=== PATIENT | female | born 1995 | race Caucasian/White ===

== ENCOUNTER 2017-07-10 17:35 | Inpatient (IN) | payer OTHER ==
[2017-07-10] MEDS ORDERED: NALOXONE 0.4 MG/ML 10 ML VIAL IVP STA (18:03)
--- NOTE | 2017-07-10 19:05 | ED ---
General Adult HPI - General Chief complaint: Overdose Stated complaint: unresponsive Time Seen by Provider: 07/10/17 17:37 Source: RN notes reviewed, old records reviewed Mode of arrival: wheelchair Limitations: altered mental status - History of Present Illness Initial comments: This is a 21-year-old female brought has emergency found in parking lot unresponsive. Patient's blood in by staff nearly apneic with pulse although cyanotic to the lips. Patient is unable to give history secondary to clinical state. - Related Data Home Medications Medication Instructions Recorded Confirmed No Known Home Medications [No 07/10/17 07/10/17 Known Home Medications] Allergies Allergy/AdvReac Type Severity Reaction Status Date / Time No Known Allergies Allergy Verified 07/10/17 18:01 Review of Systems ROS Statement: Those systems with pertinent positive or pertinent negative responses have been documented in the HPI. ROS Other: All systems not noted in ROS Statement are negative. Past Medical History Past Medical History: No Reported History History of Any Multi-Drug Resistant Organisms: None Reported Past Surgical History: Orthopedic Surgery, Tonsillectomy Past Psychological History: No Psychological Hx Reported Smoking Status: Current every day smoker Past Alcohol Use History: Occasional Past Drug Use History: Heroin, Methamphetamine General Exam Limitations: altered mental status General appearance: alert, lethargic, obtunded Head exam: Present: atraumatic, normocephalic, normal inspection Eye exam: Present: normal appearance, PERRL, EOMI. Absent: scleral icterus, conjunctival injection, periorbital swelling ENT exam: Present: normal exam, mucous membranes moist Neck exam: Present: normal inspection. Absent: tenderness, meningismus, lymphadenopathy Respiratory exam: Present: decreased breath sounds. Absent: respiratory distress, wheezes, rales, rhonchi, stridor Cardiovascular Exam: Present: regular rate, normal rhythm, normal heart sounds. Absent: systolic murmur, diastolic murmur, rubs, gallop, clicks GI/Abdominal exam: Present: soft, normal bowel sounds. Absent: distended, tenderness, guarding, rebound, rigid Extremities exam: Present: normal inspection, full ROM, normal capillary refill. Absent: tenderness, pedal edema, joint swelling, calf tenderness Back exam: Present: normal inspection Psychiatric exam: Present: normal affect, normal mood Skin exam: Present: cyanosis. Absent: rash Course Vital Signs 07/10/17 07/10/17 07/10/17 17:43 17:49 18:08 Temperature 98.6 F Pulse Rate 136 H 107 H 87 Respiratory 0 L 16 12 Rate Blood Pressure 133/77 133/77 O2 Sat by Pulse 98 99 Oximetry - Reevaluation(s) Reevaluation #1: 07/10/17 19:03 Patient was adequately resuscitated with bag valve ventilation, IV, IV Narcan and patient responded appropriately Reevaluation #2: 07/10/17 19:04 Patient is currently awake and alert has family at bedside Medical Decision Making - Medical Decision Making 21 female at with overdose, acute overdose. Patient has adequate return of mental state with Narcan, does admit to heroin use. Denies any other drugs. Patient remains awake and alert here in the emergency department. Patient asking to be discharged home Critical Care Time Critical Care Time: Yes Total Critical Care Time: 31 Disposition Clinical Impression: Accidental drug ingestion, Drug overdose, Poisoning by opiate or related narcotic Disposition: HOME SELF-CARE Condition: Good Instructions: Opioid Overdose (ED) Referrals: None,Stated [Primary Care Provider] - 1-2 days
[2017-07-10] MEDS ORDERED: MAGNESIUM HYDROXIDE 2,400 MG/10 ML CUP PO PRN (21:41)
--- NOTE | 2017-07-10 23:33 | P.MDCNMH ---
History of Present Illness H&P Date: 07/10/17 Chief Complaint: medical management 21 year old female with past psychiatric history of depression, bipolar disorder , and heroin addiction. Patient was brought into the hospital after overdosing on Heroin, She was brought in by her friends who dropped her at the parking lot, then hospital staff members helped her inside when they found her in the parking lot. Patient reports that she frequently overdoses on heroin, otherwise she currently denies any chest pain, fever, chills, trouble breathing, abd pain, diarrhea, dysuria, or any vaginal discharge. She is currently awake and alert, she is worried about withdrawal symptoms. She reports an abrasion over her anterior chest due to sternal rub performed by her friends Review of Systems Constitutional: Patient reports no fever, no chills, no night sweating, no significant weight changes Eyes: Patient reports no visual changes, no eye pain ENT: Patient reports no ear pain, no rhinorrhea, no sore throat Cardiovascular: Patient reports no chest pain, no exertional dyspnea, no peripheral leg edema, no orthopnea, no paroxysmal nocturnal dyspnea Respiratory:Patient reports no cough, no wheezing, no shortness of breath Gastrointestinal: Patient reports no diarrhea, no constipation, no nausea no vomiting, no abdominal pain Genitourinary: Patient reports no dysuria, no hematuria, no changes in urinary habits, no genital lesions Musculoskeletal: Patient reports no muscle pain, no joint pain Psychiatric: Patient reports no changes in mood or memory, no suicidal ideation , no anxiety Endocrine: Patient reports no heat intolerance, no cold intolerance, no excessive thirst, no polyuria Neurological: Patient reports no focal neurologic deficits, no weakness, no numbness, no tingling Hem/Lymphatic: Patient reports no bleeding tendency, no bruising, no swollen lymph glands Allergic/Immun: Patient reports no recent allergic reactions Skin: Patient reports no rashes, no pruritis, Patient reports abrasions over the anterior chest due to sternal rubs. Past Medical History Additional Past Medical History / Comment(s): hepatitis C History of Any Multi-Drug Resistant Organisms: None Reported Past Surgical History: Orthopedic Surgery, Tonsillectomy Past Psychological History: Bipolar, Depression Smoking Status: Current every day smoker Past Alcohol Use History: Occasional Past Drug Use History: Heroin, Methamphetamine Additional History: family history of neurofibromatosis in her grandfather and uncle Medications and Allergies Home Medications and Allergies Comment(s): patient denies taking any medications at home Home Medications Medication Instructions Recorded Confirmed Type No Known Home Medications [No 07/10/17 07/10/17 History Known Home Medications] Allergies Allergy/AdvReac Type Severity Reaction Status Date / Time No Known Allergies Allergy Verified 07/10/17 18:01 Physical Exam Vitals: Vital Signs Temp Pulse Pulse Resp BP BP Pulse Ox 07/10/17 21:56 97.8 F 89 16 111/73 99 07/10/17 19:20 113 H 18 121/74 98 07/10/17 18:08 87 12 133/77 99 07/10/17 17:49 107 H 16 133/77 98 07/10/17 17:43 98.6 F 136 H 0 L Intake and Output 07/10/17 07/10/17 07/10/17 06:59 14:59 22:59 Other: Weight 60 kg Patient Weight 07/11/17 06:59 Weight 60 kg Constitutional: No acute distress, conversant, pleasant Eyes: Anicteric sclerae, moist conjunctiva, no lid-lag Pupils equal round reactive to light ENMT: NC/AT Oropharynx clear, no erythema, exudates Neck: Supple, FROM, no masses, or JVD No carotid bruits No thyromegaly Lungs: Clear to auscultation Clear to percussion Normal respiratory effort, no accessory muscle use Cardiovascular: Heart regular in rate and rhythm, No murmurs, gallops, or rubs No peripheral edema Abdominal: Soft Nontender, no guarding, rebound or rigidity Abdomen moving with respiration Normoactive bowel sounds No hepatomegaly, No splenomegaly No palpable mass No abdominal wall hernia noted Skin: Normal temperature, tone, texture, turgor No induration No subcutaneous nodules No rash superficial abrasions (2) over the mid sternal area 3X3 cm each, non- bleeding Extremities: No digital cyanosis No clubbing Pedal pulses intact and symmetrical Radial pulses intact and symmetrical No calf tenderness Psychiatric: Alert and oriented to person, place and time Appropriate affect fair judgment Neuro Muscles Strength 5/5 in all 4 extremities Sensation to light touch grossly present throughout No focal sensory deficits Lymphatics: no palpable cervical or supraclavicular , or inguinal lymph nodes Cranial Nerve Examination - Cranial Nerves Cranial Nerve II- Optic: Intact Cranial Nerve III- Oculomotor: Intact Cranial Nerve IV- Trochlear: Intact Cranial Nerve V- Trigeminal: Intact Cranial Nerve - Abducens: Intact Cranial Nerve VII- Facial: Intact Cranial Nerve VIII- Auditory: Intact Cranial Nerve IX- Glossopharyngeal: Intact Cranial Nerve X- Vagus: Intact Cranial Nerve XI- Accessory: Intact Cranial Nerve XII- Hypoglossal: Intact Results Labs: Abnormal Lab Results - Last 24 Hours (Table) 07/10/17 Range/Units 20:06 U Benzodiazepines Scrn Detected H (NotDetected) U Marijuana (THC) Screen Detected H (NotDetected) Assessment and Plan (1) Drug overdose Narrative/Plan: Heroin withdrawal symptoms Catapress PRN bentyl PRN loperamide PRN symptomatic control Status: Acute (2) Heroin abuse Narrative/Plan: Marijuana abuse patient counseled to quit drug of abuse Status: Acute (3) DVT prophylaxis Narrative/Plan: low risk , ambulatory Status: Acute Plan: Thank you for allowing us to participate in the care of this patient. We will follow peripherally. Do not hesitate to contact us with questions. Someone can be reached from the [facility] hospitalist group at all hours of the day at [phone].
[2017-07-11] MEDS: NICOTINE 21MG/24HR PATCH TRANSDERM SCH ×2 (00:23→08:38)
[2017-07-11 08:50] LABS: Basophils % (A) 0 %; CH 32.9; CHCM 34.6; Eosinophils # (A) 0.2 k/uL (0-0.7); Eosinophils % (A) 2 %; HCT 47.3 % (34.0-46.0); HDW 2.37; HGB 15.6 gm/dL (11.4-16.0); Luc % (Auto) 2; Lymphocytes # (A) 2.8 k/uL (1.0-4.8); Lymphocytes % (A) 33 %; MCH 31.6 pg (25.0-35.0); MCV 95.5 fL (80.0-100.0); Mean Platelet Volume 7.2; Monocytes # (A) 0.5 k/uL (0-1.0); Monocytes % (A) 6 %; Neutrophils # (A) 4.7 k/uL (1.3-7.7); Neutrophils % (A) 56 %; RBC 4.95 m/uL (3.80-5.40); RDW 13.1 % (11.5-15.5); WBC 8.4 k/uL (3.8-10.6); WBC (Perox) 8.53
[2017-07-11 09:03] LABS: ALT 64 U/L (9-52); AST 54 U/L (14-36); Alkaline Phosphatase 79 U/L (38-126); Anion Gap 7 mmol/L; Blood Urea Nitrogen 10 mg/dL (7-17); Calcium 9.2 mg/dL (8.4-10.2); Carbon Dioxide 24 mmol/L (22-30); Chloride 108 mmol/L (98-107); Glucose 88 mg/dL (74-99); Non-African American GFR(MDRD) >60 (>60 ml/min/1.73 sqM); Potassium 4.1 mmol/L (3.5-5.1); Sodium 139 mmol/L (137-145); Total Bilirubin 0.6 mg/dL (0.2-1.3); Total Protein 6.5 g/dL (6.3-8.2)
[2017-07-11] MEDS: cloNIDine HCL 0.1 MG TAB PO PRN ×2 (12:11→20:23)
[2017-07-11] MEDS: LOPERAMIDE 2 MG CAP PO PRN ×2 (12:12→19:07)
[2017-07-11] MEDS: ONDANSETRON ODT 4 MG TAB PO PRN (12:18)
--- NOTE | 2017-07-11 13:01 | HP ---
HISTORY AND PHYSICAL DATE OF SERVICE: 07/11/2017 IDENTIFYING DATA: This patient is a 21-year-old, single female, who was admitted to the mental health unit through the emergency room for suicidal ideation. HISTORY OF PRESENT ILLNESS: The patient was petition by her mother stating the patient had made numerous suicidal statements and she had nothing to live for. The patient was apparently dumped in the parking lot of the hospital. She was found and brought into the emergency room and given Narcan. It was documented that she had been given Narcan twice in the last week due to other heroin overdoses. The patient states that she admits to making the statements of being suicidal and having nothing to live for as there is an open CPS case, and there is a good chance that she will lose custody of her son. She states that she does struggle with depression and has a history of depressive episodes. She has been feeling hopeless. Sleep has been poor. Appetite decreased with reported weight loss. Energy has been low. She states that she is in the hospital now so she feels that she cannot harm herself. She has no thoughts of harming others. She is endorsing. No auditory or visual hallucinations or specific delusions. She endorses what appears to be a history of hypomanic episodes where she will go several days in a row with decreased sleep, increased energy, racing thoughts, pressured speech, and some euphoria. This does not appear to cause significant dysfunction psychosocially speaking. She endorses anxiety symptoms that are present on a daily basis. She states "I always feel on edge" she would state that she excessively worries about things that she should not have to and this contributes to feelings of fatigue irritability and restlessness as well as sleep disturbance. Her clinical picture is confounded by the fact that she is using heroin intravenously on a daily basis and has been doing so for number of years. PAST PSYCHIATRIC HISTORY: The patient has been admitted to [facility] for inpatient psychiatric care at age 13 for a suicide attempt with Excedrin. She states that was the only intentional suicide attempt she has ever made. She states these recent overdose with heroin were unintentional. She is currently working with a therapist named Gualberto at [facility] and sees him weekly. She was supposed to attend chemical dependency group as well but has missed the last several weeks. She has worked with Dr. Munoz in the past. She is on no psychotropic medications currently. She had been on lithium, Prozac, Wellbutrin and Seroquel in the past. She states Prozac made her feel crazy. Wellbutrin made her feel anxious and jittery and Seroquel was too sedating. She was tried twice on lithium, the second trial was unsuccessful. PAST MEDICAL HISTORY: Hepatitis C diagnosed approximately one and half years ago. This is due to her intravenous use of heroin and she admits to sharing needles. She states she was tested for HIV while she was but has not been tested since despite ongoing risk. ALLERGIES: No known drug allergies. CHEMICAL DEPENDENCY HISTORY: She reports using 1-4 packs of heroin on a daily basis for the last 9 years. She does use this intravenously. She uses marijuana on a daily basis. Cocaine twice a month. Alcohol rarely. She has been in inpatient chemical dependency treatment four times. The last one was one month ago at [facility]. She was clean for 2 weeks upon discharge before using heroin. FAMILY HISTORY: She has two sisters known to have bipolar disorder. One is treated with Seroquel. Her grandmother is known to have bipolar disorder. There are no suicides in the family. FAMILY CHEMICAL DEPENDENCY HISTORY: Her one sister is known to have opiate use disorder, as well specifically using heroin. LEGAL HISTORY: She was arrested in her late teens or approximately 18 years old for operating and maintaining a meth lab. She served 3 months in prison and 2 years of probation. ABUSE HISTORY: None reported. SOCIAL HISTORY: The patient is 21 years old. She is single. She resides with her mother. She has a 1- 1/2-year-old son. She states her mother also has a boyfriend that lives with them. She states her mother and her boyfriend works midnights and the patient cares for her child during the day. She admits to using drugs during the daytime but tries to "use less" when caring for her son. The patient is unemployed. She has no income. She has a 10th grade education. She quit school because she "did not like it any more." She has 1 brother and 2 sisters. She is originally from the [facility] and now lives in [place]. No history of experience. In terms of funding her use of substances, she states she "lies, cheats and steals" and also prostitutes herself at times. MENTAL STATUS EXAM: The patient is a female, appearing her stated age. She has a disheveled appearance. She is dressed in hospital gowns. Eye contact was intermittent. Speech is fluent spontaneous nonpressured. She reports a depressed mood with hopeless thinking. She presented with suicidal ideation. She endorses no homicidal ideation intent or plan. She endorses no thoughts of harming her son. She endorses no auditory or visual hallucinations or specific delusions. There is no evidence of psychosis. She demonstrates no pressured speech. She does not appear hypomanic or manic at this time. She does frequently move while seated in her chair. She demonstrates no verbal or physical aggressiveness. Insight and judgment are limited. She is oriented to person, place, and date. She is able to spell world forwards and backwards. STRENGTHS: Housing, willingness to receive voluntary treatment. WEAKNESSES: Ongoing substance use. Lack of employment. No income. INTELLECT: Average. IMPRESSIONS: 1. Bipolar 2 disorder, most recent depressed, generalized anxiety disorder, opiate use disorder, rule out cocaine use disorder, rule out cannabis use disorder. 2. Rule out Cluster B traits. 3. Hepatitis C, ongoing risk factors for HIV. 4. Open CPS case regarding custody of her son. PLAN OF TREATMENT: The patient has been admitted to the mental health unit. She is willing to sign in voluntarily. We reviewed her presenting symptoms. We decided to try to accomplish stabilization of her mood by prescribing Lamictal which we will titrate during the course of the admission. We also discussed possibly using Valtrex to reduce cravings of opiate use. We discussed both the potential benefits and side effects of these medications and her questions were answered. We will provide symptomatic treatment for impending opioid withdrawal. She will be seen by internal medicine for routine history and physical exam. Social Work will meet with the patient to complete a psychosocial assessment and begin discharge planning. We will monitor for safety and encourage her participation in the milieu. She is requesting that we check blood work for HIV status and that will be ordered as well. MMODL / IJN: [id number] /
[2017-07-11] MEDS: LORazepam 1 MG TAB PO PRN (19:06)
[2017-07-11] MEDS: ACETAMINOPHEN TAB 325 MG TAB PO PRN (19:07)
[2017-07-12] MEDS: ACETAMINOPHEN TAB 325 MG TAB PO PRN (06:42)
[2017-07-12] MEDS: cloNIDine HCL 0.1 MG TAB PO PRN ×2 (06:42→12:53)
[2017-07-12] MEDS: MAG HYDROX/AL HYDROX/SIMETH 30 ML CUP PO PRN (06:43)
[2017-07-12] MEDS: NICOTINE 21MG/24HR PATCH TRANSDERM SCH (08:52)
[2017-07-12] MEDS: LORazepam 1 MG TAB PO PRN ×2 (08:52→20:26)
[2017-07-12] MEDS: lamoTRIgine 25 MG TAB PO SCH (08:52)
--- NOTE | 2017-07-12 11:46 | P.PN ---
Progress Note - Text The patient is found in the hallway she follows me to the interview room. She reports feeling hopeless but states she has no thoughts of harming herself. She feels trapped in not knowing what to do. She thinks there is a good chance that CPS will take her son from her but she is hoping he will be placed with her mother. She struggles with the idea of maintaining sobriety from heroin and she's been using this for 9 years. She had previously been on Suboxone with Dr. Munoz and is hoping to get back into that clinic. She has no questions or concerns regarding her Lamictal. Mental status exam: The patient is alert hygiene is adequate she's mildly disheveled. Eye contact is intermittent. She does frequently moves while seated in her chair. She demonstrates no verbal or physical aggressiveness. She finds that her mood is down and she has hopeless thoughts he states she has no thoughts of harming herself. No homicidal ideation reported. She is endorsing no auditory or visual hallucinations or specific delusions. She does not appear hypomanic or manic. She remains oriented to person place and date. Plan: The patient's will continue on the Lamictal we will titrate the medication further during the course of the hospitalization. We spent several minutes discussing strategies for maintaining sobriety from heroin and other substances. Fortunately her opiate withdrawal symptoms are not severe area we will continue to monitor for safety and encourage her participation in the milieu. Vital signs reviewed. She was informed at the Ativan will be a temporary measure that she will not be discharged home on.
[2017-07-12] MEDS: ONDANSETRON ODT 4 MG TAB PO PRN ×2 (12:42→12:58)
[2017-07-12] MEDS: LOPERAMIDE 2 MG CAP PO PRN (15:44)
[2017-07-12] MEDS: hydrOXYzine PAMOATE 25 MG CAP PO PRN (15:57)
[2017-07-12] MEDS: traZODone HCL 50 MG TAB PO SCH (20:26)
[2017-07-13] MEDS: ACETAMINOPHEN TAB 325 MG TAB PO PRN ×2 (01:47→08:42)
[2017-07-13] MEDS: cloNIDine HCL 0.1 MG TAB PO PRN ×2 (01:48→17:32)
[2017-07-13] MEDS: NICOTINE 21MG/24HR PATCH TRANSDERM SCH (08:40)
[2017-07-13] MEDS: lamoTRIgine 25 MG TAB PO SCH ×2 (08:41→21:13)
[2017-07-13] MEDS: MAG HYDROX/AL HYDROX/SIMETH 30 ML CUP PO PRN (08:43)
[2017-07-13] MEDS: LORazepam 1 MG TAB PO PRN ×2 (09:56→15:45)
--- NOTE | 2017-07-13 10:24 | P.PN ---
Progress Note - Text Interval history: The patient is found at the senior front end engineer she follows me to an interview room. She reports she continues to experience symptoms of opiate withdrawal however they are better than she would've anticipated area she did receive some sad news yesterday that her good friend from middle school via a heroin overdose. She states her friend was clean for 5 months as he was in a long-term rehab program and relapsed soon after being discharged. She reports she had a meeting with her mother. She says her mother plans on trying to get temporary guardianship of the patient's son. The patient expresses uncertainty as to how she will stop using heroin. She is encouraged to schedule a rehab placement again and she was agreeable by the end of the session. We discussed the use of Lamictal and that we would be titrating it further today. She tried one dose of Vistaril regarding anxiety. Mental status exam: The patient is alert she is dressed in her own clothing she seated calmly at the table. Eye contact is appropriate. She makes a sincere effort to participate in the session today. She expresses a dysphoric mood because of her grief related to the loss of her close friend. She has hopeless thinking but states she does not want to kill herself. She states she is at a loss as to how she will "do the right thing". There is no report or evidence of psychosis. She does not appear hypomanic or manic at this time. She demonstrates no verbal or physical aggressiveness. She does exhibit increased psychomotor activity and she frequently changes position while seated in her chair. She maintains a dysphoric affect. Plan: The patient will continue on the Lamictal we will titrate the dose to 25 mg twice daily. She may use the Vistaril as needed for anxiety. We discussed that the Ativan is a temporary measure that she will not be discharged home on. She is instructed to call access to get placement at an inpatient chemical dependency treatment center and she is agreeable. Vital signs reviewed. She is encouraged to continue participating in the milieu.
[2017-07-13] MEDS: hydrOXYzine PAMOATE 25 MG CAP PO PRN ×2 (13:42→21:13)
[2017-07-13] MEDS: traZODone HCL 50 MG TAB PO SCH (21:13)
[2017-07-14] MEDS: cloNIDine HCL 0.1 MG TAB PO PRN ×2 (01:03→21:04)
[2017-07-14] MEDS: NICOTINE 21MG/24HR PATCH TRANSDERM SCH (09:01)
[2017-07-14] MEDS: lamoTRIgine 25 MG TAB PO SCH ×2 (09:01→21:03)
[2017-07-14] MEDS: LORazepam 1 MG TAB PO PRN ×2 (09:02→18:38)
--- NOTE | 2017-07-14 09:05 | P.PN ---
Progress Note - Text Interval history: The patient is found at the medication window she follows me to an interview room. She states she just completed a family meeting involving her mother. A CPS worker also interviewed the patient yesterday. She states she also called access to get an inpatient chemical dependency treatment date. She states she has to decide if she wants her son home while she is waiting to go to rehab or if it's better if he is not there. She states she was told if she relapses in his presence the consequences will be worse in terms of maintaining custody. The patient reports feeling bad today. She feels very anxious nervous. She continues to have some hopelessness thinking. Mental status exam: The patient is alert she seated calmly she is dressed in her own clothing. Eye contact is appropriate speech is fluent spontaneous nonpressured. She endorses a mood that's depressed and anxious she continues to have hopeless thoughts. She states she doesn't want to kill her self. No homicidal ideation. No report of auditory or visual hallucinations or specific delusions. She does not appear hypomanic or manic. She does demonstrate a range of expression including some tearfulness. She continues to demonstrate increased psychomotor activity while seated in her chair. Insight and judgment limited. Plan: The patient will continue on her current medication. We will discontinue the trazodone as she feels it is not helping. We will initiate Neurontin 100 mg 3 times daily to see if this could possibly help with anxiety symptoms anecdotally. Vital signs reviewed. She is not appropriate for discharge at this time. We will discuss her rehab placement date with social work during team meeting. We will continue to monitor for safety.
[2017-07-14] MEDS: GABAPENTIN 100 MG CAP PO SCH ×3 (10:25→21:03)
[2017-07-14] MEDS: ACETAMINOPHEN TAB 325 MG TAB PO PRN (13:46)
[2017-07-14] MEDS: LOPERAMIDE 2 MG CAP PO PRN (15:06)
[2017-07-14] MEDS: hydrOXYzine PAMOATE 25 MG CAP PO PRN (15:06)
[2017-07-15] MEDS: NICOTINE 21MG/24HR PATCH TRANSDERM SCH (08:49)
[2017-07-15] MEDS: lamoTRIgine 25 MG TAB PO SCH ×2 (08:49→21:09)
[2017-07-15] MEDS: GABAPENTIN 100 MG CAP PO SCH ×3 (08:49→21:09)
[2017-07-15] MEDS: cloNIDine HCL 0.1 MG TAB PO PRN (08:51)
--- NOTE | 2017-07-15 11:14 | P.PN ---
Progress Note - Text Interval history: The patient is found at the front end specialist she follows me to an interview room. She reports that she still has hopelessness thinking and she is scared. Fortunately she was able to secure placement at [facility] Thursday morning. She endorses continued feelings of depression and anxiety. She reports having difficulty sleeping last night and has been up since to a.m. Staff report that the patient has been participating in groups. Mental status exam: The patient's is alert she has adequate hygiene and fair grooming. Eye contact is appropriate. Speech is fluent spontaneous nonpressured. She endorses a hopeless mood with depression and anxiety. She is reporting no homicidal ideation. There is no evidence of psychosis hypomania or cristobal. She does demonstrate increased psychomotor activity while seated in her chair. Insight and judgment limited. She demonstrates no verbal or physical aggressiveness. Plan: The patient will continue on her current medication we will plan on titrating the Lamictal further tomorrow. I will increase her Neurontin to 200 mg 3 times daily area we will reinitiate the trazodone but at 100 mg at bedtime. She requires continued hospitalization due to her acute safety risk. I would anticipate a relapse/worsening of symptoms if she were discharged today. She may be appropriate for discharge by the end of the week.
[2017-07-15] MEDS: LORazepam 1 MG TAB PO PRN ×2 (12:57→21:09)
[2017-07-15] MEDS: ACETAMINOPHEN TAB 325 MG TAB PO PRN (17:38)
[2017-07-15] MEDS: traZODone HCL 100 MG TAB PO SCH (22:21)
[2017-07-16] MEDS: lamoTRIgine 25 MG TAB PO SCH (08:36)
[2017-07-16] MEDS: NICOTINE 21MG/24HR PATCH TRANSDERM SCH (08:36)
[2017-07-16] MEDS: GABAPENTIN 100 MG CAP PO SCH ×3 (08:36→20:47)
--- NOTE | 2017-07-16 11:33 | P.PN ---
Progress Note - Text Interval history: The patient is found in the hallway she follows me to an interview room. She reports her mood is still anxious and scared. She did have a supportive visit from her mother last evening. Upon discharge from the unit tomorrow she plans to reside with family in the morning go to [facility] in the morning on Thursday. She plans on seeking out Suboxone maintenance treatment on's discharge from rehab. She is able to verbalize reasonable goals and appears future oriented. She reports that she did get approximate 6 hours of sleep last evening. Mental status exam: The patient is alert she is dressed in her own clothing hygiene grooming adequate. She reports that her mood is scared and nervous. She is reporting no acute suicidal or homicidal ideation intent or plan. She is endorsing no auditory or visual hallucinations. No specific delusions reported. There is no observable evidence of psychosis. Insight and judgment improving. She does not appear hypomanic or manic. Affect demonstrates a more appropriate range. She demonstrates no verbal or physical aggressiveness. Plan: The patient will continue on her current medications however I will titrate the Lamictal to 100 mg daily. We anticipate discharging her tomorrow. We will continue monitoring her for safety. Vital signs reviewed.
[2017-07-16] MEDS: cloNIDine HCL 0.1 MG TAB PO PRN ×2 (12:48→15:26)
[2017-07-16 15:28] VITALS: RESP 18
[2017-07-16] MEDS: traZODone HCL 100 MG TAB PO SCH (20:47)
[2017-07-17 06:15] VITALS: BP 117/58; PULSE 67; TEMP 98.1
[2017-07-17] MEDS: NICOTINE 21MG/24HR PATCH TRANSDERM SCH (08:53)
[2017-07-17] MEDS: GABAPENTIN 100 MG CAP PO SCH (08:53)
[2017-07-17] MEDS ORDERED: lamoTRIgine 100 MG TAB PO SCH (09:00)
[2017-07-17] MEDS: ACETAMINOPHEN TAB 325 MG TAB PO PRN (09:17)
--- NOTE | 2017-07-17 09:59 | P.DS ---
Providers Date of admission: 07/10/17 20:59 Expected date of discharge: 07/17/17 Attending physician: Son Rider Consults: 07/10/17 21:41 Consult Physician Routine Consulting Provider: Azalea Franklin Consult Reason/Comments: H and P Do you want consulting provider notified?: Yes Primary care physician: Stated None - Discharge Diagnosis(es) (1) Bipolar 2 disorder, major depressive episode Current Visit: Yes Status: Acute Priority: High (2) Generalized anxiety disorder Current Visit: Yes Status: Acute Priority: High (3) Opioid use disorder, severe, dependence Current Visit: Yes Status: Acute Priority: High Hospital Course: Brief summary of admission note: The patient is a 21-year-old single female who was admitted to the mental health unit through the emergency room for suicidal ideation. The patient was petition by her mother stating that she had made numerous suicidal statements. The patient was left in the parking lot of the hospital she was found and brought to the emergency room and given Narcan. It was documented that the patient had to be given Narcan twice in the last week due to heroin overdoses. The patient had reported she has nothing to live for and she was concerned that there was an open CPS case regarding her son. She endorsed a history of struggling with depression and also endorsed a history of hypomanic episodes. She described having excessive daily anxiety for an extended period of time. She has been using heroin for the last 9 years on a daily basis. For full details please refer to my psychiatric evaluation dated'07/11/2017. Summary of hospital course: The patient was admitted to the mental health unit she signed in voluntarily. We reviewed her presenting symptoms and medication options. We decided to address the mood instability symptoms first and initiated Lamictal which has been titrated during the course of the stay. We also used Neurontin to anecdotally address symptoms of anxiety. Trazodone was used to assist with sleep. We did trial Vistaril but she did not find it was effective. The patient did attend groups. During the course of the stay she reported a progressive improvement of symptoms. She did ultimately decide that she would attend inpatient chemical dependency treatment and is scheduled to start at [facility] tomorrow morning. Social work has been in contact with the patient's mother. The patient finds that her mother has been supportive. There is an open CPS case and the CPS worker did meet with the patient while on the mental health unit. The patient has noted a resolution of acute suicidal ideation she no longer feels hopeless and is demonstrated future oriented thinking. We discussed possibly using naltrexone but she states her goal is to get on Suboxone maintenance treatment once she leaves [facility]. Mental status exam: The patient is alert she is dressed in her own clothing hygiene grooming good she is wearing makeup today. Eye contact is appropriate. She reports her mood is "good" her affect is bright and euthymic. She is reporting no suicidal or homicidal ideation intent or plan. She is endorsing no auditory or visual hallucinations and endorses no specific delusions. There is no observable evidence of psychosis. She does not appear hypomanic or manic today. Insight and judgment improved. She demonstrates no verbal or physical aggressiveness. She remains oriented to person place and date. Impressions 1. Bipolar 2 disorder most recent depressed, generalized anxiety disorder, opiate use disorder, rule out cocaine and cannabis use disorders 2. Hepatitis C 3. Open CPS case Plan: The patient is being discharged mental health unit today. She will return home with her family and will start inpatient chemical dependency treatment at [facility] 10:30 tomorrow morning. The patient will be continued on Lamictal 100 mg daily with a plan of titrating it to 200 mg daily over the next week. She will continue on trazodone 100 mg at bedtime and Neurontin 200 mg 3 times daily. The Neurontin may be titrated further. The patient no longer requires inpatient psychiatric treatment and is appropriate for transition to inpatient chemical dependency treatment. She is instructed to return to the hospital with any acute safety concerns. We discussed that her safety risk would be elevated if she engaged in any use of alcohol marijuana or any other illicit drug. Patient Condition at Discharge: Stable Plan - Discharge Summary New Discharge Prescriptions: New Gabapentin [Neurontin] 200 mg PO TID #90 cap lamoTRIgine [LaMICtal] 100 mg PO DAILY #60 tab Nicotine 21Mg/24Hr Patch [Habitrol] 1 patch TRANSDERM DAILY #12 patch traZODone HCL [Desyrel] 100 mg PO HS #30 tab Discharge Medication List Gabapentin [Neurontin] 200 mg PO TID #90 cap 07/17/17 [Rx] Nicotine 21Mg/24Hr Patch [Habitrol] 1 patch TRANSDERM DAILY #12 patch 07/17/17 [ Rx] lamoTRIgine [LaMICtal] 100 mg PO DAILY #60 tab 07/17/17 [Rx] traZODone HCL [Desyrel] 100 mg PO HS #30 tab 07/17/17 [Rx] Follow up Appointment(s)/Referral(s): [facility] [Outside] - 07/18/17 10:30 am None,Stated [Primary Care Provider] - 1-2 days Patient Instructions/Handouts: Opioid Overdose (ED) Activity/Diet/Wound Care/Special Instructions: Take all medications as prescribed and keep your follow up appointment. Do not drink alcohol or take street drugs. Crisis Line 6 [phone].
== END 2017-07-17 13:52 | disposition home or self-care (01) | DRG 885 ==
LOC: EC 17:35 → 3MHU 20:59
PROVIDERS: ADMIT Psychiatry & Neurology Psychiatry; ATTEND Psychiatry & Neurology Psychiatry
DX: F31.81 Bipolar II disorder (principal); R45.851 Suicidal ideations; F11.23 Opioid dependence with withdrawal; F41.1 Generalized anxiety disorder; F12.90 Cannabis use, unspecified, uncomplicated; B19.20 Unspecified viral hepatitis C without hepatic coma; T40.1X1A Poisoning by heroin, accidental (unintentional), initial encounter; F17.200 Nicotine dependence, unspecified, uncomplicated; G47.9 Sleep disorder, unspecified; Z91.5 Personal history of self-harm
CPT/HCPCS: 80053; 80306; 82075; 84443; 85025; 87390; 96374; 99291

== ENCOUNTER 2018-05-18 03:53 | Inpatient (IN) | payer MEDICAID, OTHER ==
[2018-05-18] MEDS ORDERED: ONDANSETRON ODT 4 MG TAB PO STA (04:28)
--- NOTE | 2018-05-18 05:26 | ED ---
Overdose HPI - General Chief Complaint: Overdose Stated Complaint: overdose Time Seen by Provider: 05/18/18 04:07 Source: EMS Mode of arrival: EMS Limitations: no limitations - History of Present Illness Initial Comments: This patient is a 22-year-old woman who presents after an accidental heroin overdose. EMS was called as the patient was not responsive. Now that she is arousable, the patient states that she had taken what was a usual dose of heroin for her, but notes that this mostly to strong. She had been in rehabilitation for 3 weeks. Patient denies symptoms right now other than a little bit of nausea. Patient states that she was not attempting to harm her self. MD Complaint: accidental overdose -: minutes(s) Context: Accidental Overdose: wanted to get high Treatments Prior to Arrival: narcan - Related Data Previous Rx's Medication Instructions Recorded Gabapentin [Neurontin] 200 mg PO TID #90 cap 07/17/17 Nicotine 21Mg/24Hr Patch [Habitrol] 1 patch TRANSDERM DAILY #12 patch 07/17/17 lamoTRIgine [LaMICtal] 100 mg PO DAILY #60 tab 07/17/17 traZODone HCL [Desyrel] 100 mg PO HS #30 tab 07/17/17 Allergies Allergy/AdvReac Type Severity Reaction Status Date / Time No Known Allergies Allergy Verified 05/18/18 04:01 Review of Systems ROS Statement: Those systems with pertinent positive or pertinent negative responses have been documented in the HPI. ROS Other: All systems not noted in ROS Statement are negative. Constitutional: Denies: fever, chills, weakness Eyes: Denies: vision change Respiratory: Denies: cough, dyspnea Cardiovascular: Denies: chest pain, palpitations Gastrointestinal: Reports: nausea. Denies: abdominal pain, vomiting Musculoskeletal: Denies: back pain Skin: Denies: rash Psychiatric: Denies: homicidal thoughts, suicidal thoughts Past Medical History Past Medical History: No Reported History Additional Past Medical History / Comment(s): hepatitis C History of Any Multi-Drug Resistant Organisms: None Reported Past Surgical History: Orthopedic Surgery, Tonsillectomy Past Psychological History: Bipolar, Depression Smoking Status: Current every day smoker Past Alcohol Use History: Occasional Past Drug Use History: Cocaine, Heroin, Methamphetamine General Exam Limitations: no limitations General appearance: alert, in no apparent distress Head exam: Present: atraumatic, normocephalic Eye exam: Present: normal appearance, PERRL, EOMI. Absent: scleral icterus, conjunctival injection Respiratory exam: Present: normal lung sounds bilaterally. Absent: respiratory distress, wheezes, rales, rhonchi, stridor Cardiovascular Exam: Present: regular rate, normal rhythm, normal heart sounds. Absent: systolic murmur, diastolic murmur, rubs, gallop GI/Abdominal exam: Present: soft. Absent: distended, tenderness, guarding, rebound Extremities exam: Present: normal inspection, normal capillary refill. Absent: pedal edema, calf tenderness Back exam: Absent: CVA tenderness (R), CVA tenderness (L) Neurological exam: Present: alert Psychiatric exam: Present: normal mood. Absent: homicidal ideation, suicidal ideation Skin exam: Present: warm, dry, intact, normal color. Absent: rash Course Vital Signs 05/18/18 03:58 Temperature 100 F H Pulse Rate 73 Respiratory 16 Rate Blood Pressure 144/91 O2 Sat by Pulse 99 Oximetry Disposition Referrals: None,Stated [Primary Care Provider] - 1-2 days
[2018-05-18 07:29] LABS: Amphetamine Screen,Urine Not Detected (NotDetected); Barbiturate Screen,Urine Not Detected (NotDetected); Benzodiazepines Screen,Urine Not Detected (NotDetected); Cocaine Screen,Urine Detected (NotDetected); Methadone Screen, Urine Not Detected (NotDetected); Opiate Screen,Urine Detected (NotDetected); Oxycodone Screen, Urine Not Detected (NotDetected); Phencyclidine Screen,Urine Not Detected (NotDetected); Tricyclic Antidepressant,Urine Not Detected (NotDetected); Urn Cannabinoid Scrn Not Detected (NotDetected)
[2018-05-18] MEDS ORDERED: LORazepam 1 MG TAB PO STA (10:08)
[2018-05-18] MEDS ORDERED: MAG HYDROX/AL HYDROX/SIMETH 30 ML CUP PO PRN (14:50)
[2018-05-18] MEDS ORDERED: MAGNESIUM HYDROXIDE 2,400 MG/10 ML CUP PO PRN (14:50)
[2018-05-18] MEDS ORDERED: LORazepam 2 MG/ML INJ IM PRN (14:53)
[2018-05-18] MEDS ORDERED: ONDANSETRON 4 MG TAB PO PRN (16:19)
--- NOTE | 2018-05-18 16:36 | P.HP ---
Psychiatric H&P - . H&P Date: 05/18/18 History & Physical: Allergies Allergy/AdvReac Type Severity Reaction Status Date / Time No Known Allergies Allergy Verified 05/18/18 14:49 Vital Signs Temp 98.9 F 05/18/18 15:00 Pulse 62 05/18/18 15:00 Resp 16 05/18/18 15:00 BP 109/64 05/18/18 15:00 Pulse Ox 96 05/18/18 15:00 Intake & Output 05/17/18 05/18/18 05/18/18 18:59 06:59 18:59 Weight 68.039 kg 61.887 kg Laboratory Last Values Urine Opiates Screen Detected (NotDetected) H 05/18/18 07:11 Ur Oxycodone Screen Not Detected (NotDetected) 05/18/18 07:11 Urine Methadone Screen Not Detected (NotDetected) 05/18/18 07:11 Ur Propoxyphene Screen Not Detected (NotDetected) 05/18/18 07:11 Ur Barbiturates Screen Not Detected (NotDetected) 05/18/18 07:11 U Tricyclic Antidepress Not Detected (NotDetected) 05/18/18 07:11 Ur Phencyclidine Scrn Not Detected (NotDetected) 05/18/18 07:11 Ur Amphetamines Screen Not Detected (NotDetected) 05/18/18 07:11 U Methamphetamines Scrn Not Detected (NotDetected) 05/18/18 07:11 U Benzodiazepines Scrn Not Detected (NotDetected) 05/18/18 07:11 Urine Cocaine Screen Detected (NotDetected) H 05/18/18 07:11 U Marijuana (THC) Screen Not Detected (NotDetected) 05/18/18 07:11 05/18/18 16:19 Identification: Patient is a 22-year-old female was brought to the emergency room unresponsive after taking an overdose of heroin. History of Present Illness: Patient states that she had been clean for 9 months and 1 month ago child protective services removed her son from her because she took an overdose of heroin in front of him. She states that when that occurred she began using heroin again. She states that she had been clean for 9 months at that time. She states that she was not trying to kill herself but was overdosing on heroin. Patient states that she was at [facility] inpatient rehab from April 24 until May 15 and when she was released found out that there was a warrant for child endangerment and started using again. Patient states that she is followed at [facility] in [facility] but has not been seen there in 2 months and probably has not been taking her medications for the last 2 months. Patient states her medications were Lamictal 150 mg twice a day, Catapres 0.1 mg at bedtime, Seroquel 50 mg at bedtime, Neurontin 300 mg twice a day and Abilify 10 mg daily. Patient reports that she's been treated for bipolar disorder since the age of 12. She describes not sleeping a lot and being up for days at a time running the streets , using drugs as well as impulsive reckless behavior with an increased interest in sex and pressured speech. She states that she alternates with periods of depression where she's not talking withdrawn suicidal with no energy and poor sleep. Patient states at the age of 12 she took an overdose of over-the- counter medication and wasn't hospitalized but eventually was hospitalized in for a time at the age of 12. She states she was also hospitalized here in July 2017 after she took an overdose of heroin again was not a suicide attempt. She states at that time she had overdosed on heroin 3 times in several days and really didn't care about anything. States she followed with [facility] and meds were adjusted to the above medications. Patient states she's been using cocaine, IV heroin and also used methamphetamine. She states that she is currently suicidal, has no current plan but states that she wants to . Patient states that she feels hopeless and worthless. Patient does not endorse any psychotic symptoms. Patient states she is also on Neurontin for her anxiety which she can't really elaborate on what the symptoms were. Past Psychiatric History: Patient has 2 prior admissions one at the age of 12 and one in July 2017. Patient has attempted suicide in the past. Patient is currently being seen by [facility] at [facility] and her medications are as listed above. Patient states she is also been tried on other medications but could not recall what they were. Past Medical/Surgical History: Patient reports that she is had knee surgery on her right knee, and is hepatitis C positive Family History: Patient states that her sister diagnosed with bipolar disorder, her other sister is diagnosed with schizoaffective disorder, maternal grandmother with bipolar disorder. She states that her sister and father both have alcohol and/or drug problems. She reports no completed suicides in the family Social History: Patient was born and raised in [place] both of her parents are alive and when the patient was 2 years of age. She continues to live with her mother. She has a half-sister with a different father one full sister and a brother who has a different father. Patient left school in the ninth grade and does not have a GED. 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 Currently her mother supports her from a financial aspect. She has never been and has a 2-year-old son, child protective services has removed him. Patient has been living with her mother and her mother's boyfriend. She denied any history of abuse. Substance Use History: Patient states she began using alcohol the age of 9 and drinks one to 2 beers a week she states in the past she has had more to drink at times. Patient states that she began using IV heroin at the age of 12 and her longest sobriety was 9 months. She began using cocaine at the age of 16 and her longest sobriety was 1-1/2 years. Patient states she is used methamphetamine from the age of 16 and last used yesterday. Patient states that she used marijuana since the age of 12 and uses it at least 3 times a week. Patient is also abused amphetamines since the age of 12. She states that she's also tried LSD and mushrooms in the past. Patient states that she does use tobacco products. 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 served 3 months in intermediate, she is also been charged with a misdemeanor having possession of dangerous drugs and is currently a warrant out for her for child endangerment Mental status: Appearance/Attitude: Patient is dressed in a hospital gown, appears very tired and almost falls asleep during the interview, she makes intermittent eye contact and was cooperative Behavior: Patient does not display any psychomotor agitation or retardation Speech/Language: Patient's speech is spontaneous of normal volume and rhythm and she is coherent Thought Process: Patient is goal-directed there is no evidence of loose association or flight of ideas Thought Content: Patient denies any auditory or visual hallucinations and no delusions or paranoid ideation were elicited area patient states that she is not sleeping feeling tired with little energy or interest to do things. Patient 's describes herself as being socially withdrawn and feeling hopeless and helpless. Suicidal/Homicidal Ideation: Patient reports suicidal ideation with no current plan but a wish to and no current homicidal ideation Sensorium/Cognition: Patient is alert and oriented to person, place, and time and her recent and remote memory are grossly intact Mood/Affect: Patient's mood is depressed and her affect is blunted Insight/Judgment: Patient's insight and judgment are fair Intellectual Functioning: Patient's intellectual functioning appears average Strength/Weakness: Patient has a place to live/lack of compliance with follow- up care and medication, use of drugs and/or alcohol Assessment: patient presents with a history of bipolar disorder diagnosed when she was 12 years of age and has a history of both manic and depressive episodes. Patient is also been using drugs since the age of 12, currently using IV heroin cocaine, methamphetamine, marijuana and alcohol. Patient states that she had been sober for 9 months until CPS presented to her home and moved her son due to her taking an overdose in front of him. Patient states she was recently at [facility] and when she left found out that there was a warrant for her arrest for child endangerment and she began using drugs again. Patient states that she was not trying to kill herself but overdosed on heroin but states that she is feeling suicidal with no plan and wish to . Patient states that she's been off of her medication for the last 2 months and has not been seen by community mental health in at least 2 months. Patient does have 1 prior suicide attempt at the age of 12 taking [id number] medications. Patient has been in the hospital twice in the past. Patient currently presents feeling depressed, suicidal ideation feeling hopeless and helpless and states that her sleep is poor she feels tired with little or no energy. Admission Diagnosis: bipolar type I disorder, current episode depressed; opioid use disorder, moderate; cannabis use disorder, mild; cocaine/amphetamine use disorder, mild Plan: Patient was admitted on a voluntary basis and placed on routine observation. Patient was also ordered group and activity therapy and will have routine laboratory studies as well as a medical consultation. Patient and I discussed her medications and she did feel that the Lamictal, Abilify, and Neurontin had been beneficial to her in the past. Patient and I reviewed the use and side effects of these medications and we'll restart the patient on Abilify 5 mg in the morning, Lamictal 25 mg the morning and Neurontin 100 mg 3 times a day. Neurontin is being used to target her anxiety the Lamictal and Abilify to stabilize her mood. I discussed with the patient that we could slowly titrate the Abilify Neurontin however the titration schedule for Lamictal is every 2 weeks. Patient requires hospitalization to further stabilize her mood, will discuss with the patient possible referral for inpatient rehab.
--- NOTE | 2018-05-18 20:58 | P.HPMEDMHU ---
History of Present Illness H&P Date: 05/18/18 Chief Complaint: HPI for a MHU The patient is a 22-year-old female with a past medical history of bipolar disorder and a history of polysubstance abuse including use of marijuana , heroin and cocaine and methamphetamine who is admitted to the mental health unit with depressed mood and suicidal ideation increase hopelessness. Patient recently began reusing heroin after she found out there is a warrant for her rest for child endangerment, she's been using heroin and methamphetamine recently. The patient has a history of hepatitis C denies any history of treatment, she currently denies any chest pain shortness of breath nausea vomiting or abdominal pain. Essentially the patient is without any complaints at this time Review of Systems Those systems with pertinent positive or pertinent negative responses have been documented in the HPI. ROS Other: All systems not noted in ROS Statement are negative. Past Medical History Past Medical History: Liver Disease Additional Past Medical History / Comment(s): hepatitis C, bipolar depression/ anxiety. pt stated in past has panic attacks History of Any Multi-Drug Resistant Organisms: None Reported Past Surgical History: Orthopedic Surgery, Tonsillectomy Additional Past Surgical History / Comment(s): rt knee-"bone shaved" Past Anesthesia/Blood Transfusion Reactions: No Reported Reaction Additional Past Anesthesia/Blood Transfusion Reaction / Comment(s): never had a blood transfusion Smoking Status: Current every day smoker - Past Family History Mother Additional Family Medical History / Comment(s): back problems- has pain pump Father Family Medical History: No Reported History Medications and Allergies Home Medications Medication Instructions Recorded Confirmed Type ARIPiprazole [Abilify] 10 mg PO DAILY 05/18/18 05/18/18 History Gabapentin [Neurontin] 300 mg PO BID 05/18/18 05/18/18 History QUEtiapine [SEROquel] 50 mg PO HS 05/18/18 05/18/18 History cloNIDine HCL [Catapres] 0.1 mg PO HS 05/18/18 05/18/18 History lamoTRIgine [LaMICtal] 150 mg PO BID 05/18/18 05/18/18 History Allergies Allergy/AdvReac Type Severity Reaction Status Date / Time No Known Allergies Allergy Verified 05/18/18 14:49 Physical Exam Vitals: Vital Signs Temp Pulse Pulse Resp BP BP Pulse Ox 05/18/18 15:00 98.9 F 62 16 109/64 96 05/18/18 14:46 84 16 120/60 97 05/18/18 09:04 99.0 F 55 L 18 117/55 99 05/18/18 03:58 100 F H 73 16 144/91 99 Intake and Output 05/18/18 05/18/18 05/18/18 06:59 14:59 22:59 Other: Weight 68.039 kg 61.887 kg Constitutional: No acute distress, conversant, pleasant Eyes: Anicteric sclerae, moist conjunctiva, no lid-lag, PERRLA ENMT: NC/AT,Oropharynx clear, no erythema, exudates Neck:Supple, FROM, no masses, or JVD, No carotid bruits; No thyromegaly Lungs: Clear to auscultation, Clear to percussion, Normal respiratory effort, no accessory muscle use Cardiovascular: Heart regular in rate and rhythm, No murmurs, gallops, or rubs no peripheral edema Abdominal: Soft Nontender, nom distended, no guarding, no rebound or rigidity, Normoactive bowel sounds No hepatomegaly, No splenomegaly, No palpable mass No abdominal wall hernia noted Skin: Normal temperature, tone, texture, turgor, No induration No subcutaneous nodules, No rash, lesions, No ulcers Extremities:No digital cyanosis No clubbing, Pedal pulses intact and symmetrical Radial pulses intact and symmetrical Normal gait and station, No calf tenderness Psychiatric: Flat affect affect with suicidal ideation with no plan, denies A/V hallucinations, Neuro: Muscles Strength 5/5 in all 4 extremities, Sensation to light touch grossly present throughout, Cranial nerves II-XII grossly intact. No focal sensory deficits Cranial Nerve Examination - Cranial Nerves Cranial Nerve II- Optic: Intact Cranial Nerve III- Oculomotor: Intact Cranial Nerve IV- Trochlear: Intact Cranial Nerve V- Trigeminal: Intact Cranial Nerve - Abducens: Intact Cranial Nerve VII- Facial: Intact Cranial Nerve VIII- Auditory: Intact Cranial Nerve IX- Glossopharyngeal: Intact Cranial Nerve X- Vagus: Intact Cranial Nerve XI- Accessory: Intact Cranial Nerve XII- Hypoglossal: Intact Results Labs: Abnormal Lab Results - Last 24 Hours (Table) 05/18/18 Range/Units 07:11 Urine Opiates Screen Detected H (NotDetected) Urine Cocaine Screen Detected H (NotDetected) Assessment and Plan (1) Bipolar 1 disorder, depressed Current Visit: Yes Status: Acute Code(s): F31.9 - BIPOLAR DISORDER, UNSPECIFIED SNOMED Code(s): 48651086 (2) Drug overdose Current Visit: No Status: Acute Code(s): T50.901A - POISONING BY UNSP DRUG/ MEDS/BIOL SUBST, ACCIDENTAL, INIT SNOMED Code(s): 53452353 (3) Poisoning by opiate or related narcotic Current Visit: No Status: Acute Code(s): RFK2414 - SNOMED Code(s): 57752318 (4) Chronic hepatitis C Current Visit: Yes Status: Acute Code(s): B18.2 - CHRONIC VIRAL HEPATITIS C SNOMED Code(s): 684063651 Plan: The patient is admitted to the mental health unit under the care of Dr. Rider. We'll defer to primary inpatient psychiatry team regarding ongoing psychotropic therapy with CBT. The patient currently has no complaints today after having impending relapse of her heroin addiction. We'll follow-up her lab studies, will otherwise sign off on this patient For any further questions and concerns please do not hesitate to contact the sound inpatient team. I appreciate the option to be involved in ongoing care of this patient
[2018-05-18] MEDS: GABAPENTIN 100 MG CAP PO SCH (21:03)
[2018-05-19 09:04] LABS: Basophils % (A) 0 %; Eosinophils # (A) 0.2 k/uL (0-0.7); Eosinophils % (A) 2 %; HCT 46.5 % (34.0-46.0); HGB 15.5 gm/dL (11.4-16.0); Lymphocytes # (A) 3.3 k/uL (1.0-4.8); Lymphocytes % (A) 39 %; MCH 30.9 pg (25.0-35.0); MCHC 33.3 g/dL (31.0-37.0); MCV 92.9 fL (80.0-100.0); Mean Platelet Volume 6.5; Monocytes # (A) 0.5 k/uL (0-1.0); Monocytes % (A) 6 %; Neutrophils # (A) 4.3 k/uL (1.3-7.7); Neutrophils % (A) 51 %; Platelet Count 246 k/uL (150-450); RBC 5.01 m/uL (3.80-5.40); RDW 12.1 % (11.5-15.5); WBC 8.4 k/uL (3.8-10.6)
[2018-05-19 09:44] LABS: ALT 75 U/L (9-52); AST 74 U/L (14-36); Albumin 3.5 g/dL (3.5-5.0); Alkaline Phosphatase 65 U/L (38-126); Anion Gap 4 mmol/L; Blood Urea Nitrogen 10 mg/dL (7-17); Calcium 9.1 mg/dL (8.4-10.2); Carbon Dioxide 30 mmol/L (22-30); Chloride 102 mmol/L (98-107); Cholesterol 129 mg/dL (<200); Glucose 80 mg/dL (74-99); HDL Cholesterol 61 mg/dL (40-60); LDL Cholesterol,Calculated 55 mg/dL (0-99); Potassium 4.4 mmol/L (3.5-5.1); Sodium 136 mmol/L (137-145); Total Protein 6.3 g/dL (6.3-8.2); Triglycerides 67 mg/dL (<150)
[2018-05-19] MEDS: GABAPENTIN 100 MG CAP PO SCH ×3 (10:00→20:45)
[2018-05-19] MEDS: lamoTRIgine 25 MG TAB PO SCH (10:00)
[2018-05-19] MEDS: ARIPiprazole 5 MG TAB PO SCH (10:00)
--- NOTE | 2018-05-19 15:10 | P.PN ---
Progress Note - Text Progress Note Date: 05/19/18 Interval History: Patient is a 22-year-old female who was seen today and she reports that she still feeling tired, sleepy depressed and doesn't want to deal with anything. She states that she did sleep and she is eating but is staying in her room and not attending groups or activities. Mental Status: Appearance/Attitude: Patient is casually dressed, makes no eye contact and is cooperative but appears tired Behavior: Patient did not display any psychomotor agitation or retardation Speech/Language: Patient spoke in a soft voice and normal rhythm she was coherent Thought Process: Patient was goal-directed her answers are very brief with little elaboration Thought Content: Patient denied any auditory or visual hallucinations no delusions or paranoid ideation were elicited. Patient states she is eating and sleeping however feeling tired, depressed and doesn't want to deal with anyone Suicidal/Homicidal Ideation: Patient denied any current suicidal or homicidal ideation, states she just doesn't want to deal with anything Sensorium/Cognition: Patient is alert and oriented to person, place, and time and her recent and remote memory are grossly intact Mood/Affect: Patient's mood is depressed her affect is blunted Insight/Judgment: Patient's insight and judgment are fair Assessment: Patient was started on medication yesterday and she states that she still feeling tired, depressed, doesn't want to deal with anything or anyone. She states she staying in her room and not attending groups or activities because of that. Patient appears quite tired and depressed today denies that she is feeling suicidal and then stated I don't want to deal with anything. Patient and I discussed the fact that when she is released from the hospital the police will pick her up due to her outstanding warrants. Patient stated that she is not having any withdrawal symptoms and did not report any anxiety. Plan: Patient continue on Abilify 5 mg, Neurontin 103 times a day and Lamictal 25 mg daily patient continues to require hospitalization to stabilize her mood
[2018-05-19 20:03] LABS: Hemoglobin A1C 5.2 % (4.0-6.0)
[2018-05-20] MEDS: GABAPENTIN 100 MG CAP PO SCH ×3 (10:14→19:55)
[2018-05-20] MEDS: ARIPiprazole 5 MG TAB PO SCH (10:14)
[2018-05-20] MEDS: lamoTRIgine 25 MG TAB PO SCH (10:14)
[2018-05-20] MEDS: ACETAMINOPHEN TAB 325 MG TAB PO PRN ×2 (10:14→22:03)
[2018-05-20] MEDS: LORazepam 1 MG TAB PO PRN ×2 (10:14→22:04)
--- NOTE | 2018-05-20 13:07 | P.PN ---
Progress Note - Text Progress Note Date: 05/20/18 Interval History: Patient is a 22-year-old female who was seen today and she reports that she is feeling less tired because she slept better last evening. She states that she still feeling depressed, is feeling hopeless that she'll never obtained custody of her son and states that she has suicidal thoughts with no plan and states that she wants to feeling that he'll do better off without her. Patient reported no side effects from her medications and states she will attempt to attend groups today. She states that she still feeling anxious and on edge. Mental Status: Appearance/Attitude: Patient is casually dressed, appears less tired today makes good eye contact and was cooperative Behavior: Patient did not exhibit any psychomotor agitation or retardation. Speech/Language: Patient's speech was spontaneous and normal volume and rhythm and she is coherent. Thought Process: Patient was goal-directed there is no evidence of loose association or flight of ideas Thought Content: Patient denies any auditory or visual hallucinations and no delusions or paranoid ideation were elicited. Patient states she is feeling hopeless and depressed and doesn't feel she'll ever be able to regain custody of her son. She states that she slept well last night and is feeling less tired and her appetite is good. She reports no side effects from the medication. Suicidal/Homicidal Ideation: Patient states she continues to have suicidal thoughts with no plan and states she wants to because she fears that she won 't ever regaining custody of her son and that he may be better off without her. She denies any current homicidal ideation Sensorium/Cognition: Patient is alert and oriented to person, place, and time and her recent and remote memory are grossly intact Mood/Affect: Patient's mood is depressed and her affect blunted Insight/Judgment: Patient's insight and judgment are fair Assessment: Patient and I discussed her symptoms of depression, hopelessness regarding her son's custody, her suicidal thoughts and wishes to . Patient states that she was able to maintain her sobriety for a while but then hooked up with a friend who uses and restarted using IV heroin. Patient states that she doesn't know what else to do to remain sober. Patient states that no one in her house uses drugs. Patient reported no side effects from the medication and states she is less tired today and her appetite is good. Plan: Will increase patient's Abilify to 10 mg a day to target her mood symptoms and increase her gabapentin to 200 mg 3 times a day to target her anxiety and continue Lamictal 25 mg a day. Patient is aware she is on a alf hold and will be taken to alf when she is released from the hospital.
[2018-05-20 16:55] LABS: Appearance,Urine Clear (Clear); Bilirubin,Urine Negative (Negative); Blood,Urine Negative (Negative); Color,Urine Yellow; Glucose,Urine (UA) Negative (Negative); Ketones,Urine Trace (Negative); Leukocyte Esterase,Urine Negative (Negative); Nitrite,Urine Negative (Negative); PH, Urine 7.5 (5.0-8.0); Protein,Urine Negative (Negative); Specific Gravity,Urine 1.009 (1.001-1.035)
[2018-05-21] MEDS: GABAPENTIN 100 MG CAP PO SCH (09:26)
[2018-05-21] MEDS: lamoTRIgine 25 MG TAB PO SCH (09:26)
[2018-05-21] MEDS: ARIPiprazole 10 MG TAB PO SCH (09:26)
[2018-05-21] MEDS: LORazepam 1 MG TAB PO PRN ×2 (09:27→20:10)
[2018-05-21] MEDS: NICOTINE 21MG/24HR PATCH TRANSDERM SCH (09:42)
--- NOTE | 2018-05-21 11:57 | P.PN ---
Progress Note - Text Progress Note Date: 05/21/18 Interval History: Patient is a 22-year-old female who was seen today and she reports that she continues to feel as though things will never get any better. She states that she thinks she is "program to be a fuck up". Patient states that she is not suicidal but states she has no interest in living as she sees no point to it. Patient states that she slept fairly well last night has attended some groups. Patient states that she is having side effects from the medication but continues to feel depressed, tearful and states that there is so many uncertain things how long she can be in custodial, will she ever get her son back. Mental Status: Appearance/Attitude: Patient is casually dressed, makes intermittent eye contact and is cooperative. Behavior: Patient does not exhibit any psychomotor agitation or retardation. Speech/Language: She is spontaneous, speech is of normal volume and rhythm and she is coherent. Thought Process: Patient is goal-directed there is no evidence of loose association or flight of ideas Thought Content: Patient denies any auditory or visual hallucinations and no delusions or paranoid ideation or elicited. Patient states she feels defeated, states that she still wants to because she doesn't see any point in living and feels that her life has been one mistake after another. Patient states that she is sleeping and eating well. Suicidal/Homicidal Ideation: Patient denies suicidal ideation but states that she wants to because she sees no point in her life but no intent to act at this time and no current homicidal ideation. Sensorium/Cognition: Patient is alert and oriented to person, place, and time and her recent and remote memory are grossly intact. Mood/Affect: Patient's mood remains depressed, tearful and her affect is appropriate to her mood Insight/Judgment: Patient's insight and judgment are fair Assessment: Patient states that she feels defeated, they're too many uncertainties in her life about how long she will be in custodial she'll ever have her son back. She states that she feels her life is been one failure after another and that she's program to continue to do that. She denies any psychotic symptoms and states that she still feels like she wants to but has no suicidal thoughts or intent to act and states that she wants to because she doesn't see any point to living. Patient reports no side effects from the medication. Patient has been attending some groups or activities with minimal participation Plan: Patient will continue on the Abilify 10 mg, we'll increase her Neurontin to 300 mg 3 times a day to target her anxiety and continue Lamictal 25 mg daily. Patient was encouraged to attend groups or activities and patient continues to require hospitalization to stabilize her mood.
[2018-05-21] MEDS: GABAPENTIN 300 MG CAP PO SCH ×2 (16:29→20:09)
[2018-05-21] MEDS: ACETAMINOPHEN TAB 325 MG TAB PO PRN (20:11)
[2018-05-22] MEDS: ACETAMINOPHEN TAB 325 MG TAB PO PRN (03:21)
[2018-05-22] MEDS: lamoTRIgine 25 MG TAB PO SCH (08:37)
[2018-05-22] MEDS: ARIPiprazole 10 MG TAB PO SCH (08:37)
[2018-05-22] MEDS: GABAPENTIN 300 MG CAP PO SCH ×3 (08:37→21:08)
[2018-05-22] MEDS: NICOTINE 21MG/24HR PATCH TRANSDERM SCH (08:37)
[2018-05-22] MEDS: LORazepam 1 MG TAB PO PRN ×2 (08:38→20:04)
--- NOTE | 2018-05-22 15:05 | P.PN ---
Progress Note - Text Progress Note Date: 05/22/18 Interval history: Patient seen in [facility] [place]. She reports she didn't sleep well last night. She does feel tired today. She also wonders about this as a medication side effect. She does describe still having on and off thoughts of suicide. Mental status exam: She is alert and cooperative with the interview. She describes feeling tired. Her mood appears depressed. She admits to some ongoing on and off thoughts of suicide but reports she feels safer in the hospital. She does not voice any thoughts of harm to others. There is no evidence of active psychosis symptoms. She does not show any agitation. Her affect is restricted. Plan: Patient will be maintained on current psychotropic medication regimen. We 'll continue to monitor for any side effects. Monitor her sleep. We'll continue to monitor regarding any thoughts of suicide. We'll continue to cover this patient through the weekend.
[2018-05-23] MEDS: ARIPiprazole 10 MG TAB PO SCH (08:43)
[2018-05-23] MEDS: LORazepam 1 MG TAB PO PRN ×2 (08:43→20:16)
[2018-05-23] MEDS: GABAPENTIN 300 MG CAP PO SCH ×3 (08:43→21:10)
[2018-05-23] MEDS: NICOTINE 21MG/24HR PATCH TRANSDERM SCH (08:43)
[2018-05-23] MEDS: lamoTRIgine 25 MG TAB PO SCH (08:43)
--- NOTE | 2018-05-23 15:23 | P.PN ---
Progress Note - Text Progress Note Date: 05/23/18 Interval history: Patient seen in [facility] today again. She reports she didn't sleep well again last night. She states last night she was walking around the unit thinking of different ways that she would be able to kill herself but was able to distract herself. She describes ongoing depression. She reports she has had benefit with melatonin the past. Mental status exam: She is alert and cooperative with the interview. Her mood is depressed. She admits to some ongoing thoughts of suicide, relays that she is able to be safe on the unit, go to staff if she is not feeling safe. She does not voice any thoughts of harm to others. There is no evidence of active psychosis. She does not show any agitation. Plan: We'll add melatonin at bedtime to see if this can help with sleep. Continue other current psychotropic medication regimen. Continue to monitor for any medication side effects and monitor her ongoing response to treatment. We'll continue to monitor her sleep and monitor regarding suicidal ideations.
[2018-05-23] MEDS: MELATONIN 3 MG TABLET PO SCH (21:10)
[2018-05-24] MEDS: LORazepam 1 MG TAB PO PRN ×2 (08:47→16:31)
[2018-05-24] MEDS: GABAPENTIN 300 MG CAP PO SCH ×3 (08:47→20:45)
[2018-05-24] MEDS: ARIPiprazole 10 MG TAB PO SCH (08:47)
[2018-05-24] MEDS: NICOTINE 21MG/24HR PATCH TRANSDERM SCH (08:47)
[2018-05-24] MEDS: lamoTRIgine 25 MG TAB PO SCH (08:47)
[2018-05-24] MEDS: ACETAMINOPHEN TAB 325 MG TAB PO PRN (09:01)
--- NOTE | 2018-05-24 12:49 | P.PN ---
Progress Note - Text Progress Note Date: 05/24/18 Interval History: Patient is a 22-year-old female who was seen today, she states that she still feeling depressed and hopeless about the situation regarding [facility]pc and her son. Patient states that she slept better last night with the melatonin. Patient states she's been attending some groups and activities. She states that she sees no way to change how her outlook about her son and states that she just sees her self continuing to do the wrong thing. Patient states that she still has suicidal thoughts but no plan or intent to act at this time. She states that she feels everything is hopeless. Mental Status: Appearance/Attitude: Patient is casually dressed, makes no eye contact and is superficially cooperative. Behavior: Patient does not display any psychomotor agitation or retardation Speech/Language: Patient's speech is spontaneous of normal volume and rhythm and she is coherent Thought Process: Patient is goal-directed, she elaborates very little on her responses and needs encouragement Thought Content: Patient denies auditory or visual hallucinations and no paranoid or delusional ideation is elicited. Patient denies racing thoughts and states that she still feeling hopeless about her situation with her son and needing to go to [facility]. Patient states that she continues to screw things up and that nothing is ever going to go well for her. She states that she is attended some groups and activities and is trying to be more positive. Patient reports that she isn't sleeping well at night and the melatonin helped last night and her appetite is good. Suicidal/Homicidal Ideation: Patient states that she continues to have suicidal thoughts but no current plan or intent to act and no current homicidal ideation Sensorium/Cognition: Patient is alert and oriented to person, place, and time and her recent and remote memory are grossly intact. Mood/Affect: Patient's mood remains depressed and her affect blunted Insight/Judgment: Patient's insight and judgment are fair Assessment: Patient was encouraged to attend groups and activities, she has attended some, she was encouraged to stay awake during the day so that her sleep and improve at night. Patient denied discussed a more positive outlook regarding her son as well as her legal issues. Patient states that she still having suicidal thoughts but reported no plan or intent to act. She stated that she was trying to be more positive in her outlook. Plan: Patient continue on Abilify 10 mg, Lamictal 25 mg to stabilize her mood and melatonin 3 mg at bedtime to target her sleep. Patient is also on gabapentin to target her anxiety. We'll consider an increase in the Abilify. The patient's mood continues to remain depressed. Patient continues to require hospitalization to further stabilize her mood
[2018-05-24] MEDS: MELATONIN 3 MG TABLET PO SCH (21:41)
[2018-05-25] MEDS: LORazepam 1 MG TAB PO PRN (06:24)
[2018-05-25] MEDS: NICOTINE 21MG/24HR PATCH TRANSDERM SCH (08:32)
[2018-05-25] MEDS: ARIPiprazole 10 MG TAB PO SCH (08:32)
[2018-05-25] MEDS: GABAPENTIN 300 MG CAP PO SCH ×3 (08:32→21:27)
[2018-05-25] MEDS: lamoTRIgine 25 MG TAB PO SCH (08:32)
--- NOTE | 2018-05-25 14:45 | P.PN ---
Progress Note - Text Progress Note Date: 05/25/18 Interval History: Patient is a 22-year-old female who was seen today and she reports that she did have a blackout around her neck last night trying to choke herself after she spoke with the father of her son who told her that they were seeking permanent custody removal of her parental rights. She states she talked to her mother later and her mother will contact child protective services to see if this is true or not. Patient states that she is still having suicidal thoughts but does not feel like acting on them. She states that she is sleeping better and her appetite has improved. Patient reports that she still feeling anxious during the day. She states that antidepressants it made her worse and more agitated in the past Mental Status: Appearance/Attitude: Patient is wearing makeup today, makes better eye contact and was cooperative. Behavior: Patient does not exhibit any psychomotor agitation or retardation Speech/Language: Patient's speech is spontaneous of normal volume and rhythm and she is coherent Thought Process: Patient is goal-directed and no evidence of loose association or flight of ideas Thought Content: Patient denies any auditory or visual hallucinations and no delusions or paranoid ideation were elicited. Patient talks about becoming upset last night after speaking with the father of her son and his stating that he was going to seek removal of her parental rights. Patient states that she's been contemplating which she and I had discussed regarding rehab programs and possibly sober living afterwards. Patient states that she is sleeping better and her appetite has improved. She states that she is trying to be more positive and spoke with her mother about contacting CPS to see if they were trying to remove her parental rights Suicidal/Homicidal Ideation: Patient states she still has suicidal ideation but not any plans or intent to act no current homicidal ideation Sensorium/Cognition: Patient is alert and oriented to person, place, and time and her recent and remote memory are grossly intact Mood/Affect: Patient's mood is less depressed and her affect remains slightly blunted Insight/Judgment: Patient's insight and judgment are fair Assessment: Patient and I discussed her continued suicidal thoughts and patient states that she became more suicidal last night when she thought the CPS and filed for removal of her parental rights. She states she spoke with her mother who will contact CPS to find out if this is true or not. Patient states that she has considered our discussion regarding aftercare once she is released from [facility] going to inpatient rehab again and possibly sober living after that. Patient states that she has been sleeping better and her appetite has improved. She and I discussed the use of antidepressants and she stated that they make her worse, more agitated. She does feel that her depression has improved. She reported no side effects from medication and states that she has been trying to go to groups and activities. Plan: Patient will continue on Lamictal 25 mg he can be increased to 50 mg on June 02. Patient's Abilify will be increased to 15 mg to target her mood and will continue the Neurontin to target her anxiety and discontinue the Ativan and add Vistaril 25 mg 3 times a day as needed for anxiety. Patient will also continue on melatonin for her sleep. Patient continues to require hospitalization to further target her mood and suicidal thoughts.
[2018-05-25] MEDS: hydrOXYzine PAMOATE 25 MG CAP PO PRN (16:03)
[2018-05-25] MEDS ORDERED: ZIPRASIDONE 20 MG VIAL IM ONE (18:35)
[2018-05-25] MEDS ORDERED: WATER FOR INJECTION, STERILE 10 ML IV ONE (18:35)
[2018-05-25] MEDS: ZIPRASIDONE 20 MG VIAL IM PRN (18:36)
[2018-05-25] MEDS: MELATONIN 3 MG TABLET PO SCH (21:27)
[2018-05-26] MEDS: lamoTRIgine 25 MG TAB PO SCH (08:44)
[2018-05-26] MEDS: NICOTINE 21MG/24HR PATCH TRANSDERM SCH (08:44)
[2018-05-26] MEDS: ARIPiprazole 15 MG TAB PO SCH (08:44)
[2018-05-26] MEDS: GABAPENTIN 300 MG CAP PO SCH ×3 (08:44→21:21)
[2018-05-26] MEDS: hydrOXYzine PAMOATE 25 MG CAP PO PRN ×2 (11:59→20:09)
--- NOTE | 2018-05-26 14:11 | P.PN ---
Progress Note - Text Progress Note Date: 05/26/18 Interval History: Patient is a 22-year-old female who was seen today she reports that she hasn't been attending groups or she's been depressed, stating that she spoke with her ex-boyfriend got upset last night after talking to him and requested an injection because she wanted to punch something. Patient couldn't tell me what she got upset about states she did talk to her son. Patient states that she try the Vistaril yesterday and didn't think that it was an all beneficial and wonders if she can have Ativan again. Patient states that she is feeling a little suicidal today no plans to act. Patient has not contacted child protective services or spoken to her mother since we spoke yesterday. Patient continues to feel depressed, and unmotivated. Mental Status: Appearance/Attitude: Patient is casually dressed, makes intermittent eye contact and is cooperative Behavior: Patient does not exhibit any psychomotor agitation or retardation Speech/Language: Patient's speech is spontaneous of normal volume and rhythm and she is coherent Thought Process: Patient is goal-directed although today her responses were brief and with little elaboration Thought Content: Patient denies any auditory or visual hallucinations and no delusions or paranoid ideation were elicited. Patient states she got upset last night and wanted to punch something after speaking with her ex-boyfriend who is the father of her son. She states that she hasn't attended groups today because she is depressed and doesn't feel like it. She reports that she tried Vistaril yesterday when she felt anxious and didn't think that it did anything for her. Suicidal/Homicidal Ideation: Patient states that she is a little suicidal today no plans or intent to act and no current homicidal ideation Sensorium/Cognition: Patient is alert and oriented to person, place, and time and her recent and remote memory are grossly intact. Mood/Affect: Patient's mood is depressed her affect is blunted Insight/Judgment: Patient's insight and judgment are fair Assessment: Patient had shown some improvement yesterday but today was reporting she has not been attending groups, got upset last night talking to the father of #and felt like punching something she states that she's feeling more depressed and that the Vistaril didn't help with her anxiety. She states that she is a little suicidal today but can't elaborate further. Patient states that she is eating okay and is sleeping at night. Plan: Patient will continue on Abilify 15 mg daily, Vistaril 25 mg 3 times a day as needed for anxiety and gabapentin as prescribed for her anxiety. A was encouraged to attend groups and activities. Patient continues to require hospitalization to further stabilize her mood
[2018-05-26] MEDS: MELATONIN 3 MG TABLET PO SCH (21:21)
[2018-05-27] MEDS: NICOTINE 21MG/24HR PATCH TRANSDERM SCH (08:32)
[2018-05-27] MEDS: ARIPiprazole 15 MG TAB PO SCH (08:32)
[2018-05-27] MEDS: GABAPENTIN 300 MG CAP PO SCH ×3 (08:32→21:43)
[2018-05-27] MEDS: lamoTRIgine 25 MG TAB PO SCH (08:32)
[2018-05-27] MEDS: hydrOXYzine PAMOATE 25 MG CAP PO PRN ×2 (10:41→20:42)
--- NOTE | 2018-05-27 12:32 | P.PN ---
Progress Note - Text Progress Note Date: 05/27/18 Interval History: Patient is a 22-year-old female who was seen today and she states that she is feeling somewhat better, patient states that she sort of has suicidal ideation but no plan or intent to act. Patient reports that she slept awfully last night and couldn't fall asleep. She reports that she is feeling less depressed this morning and thinks she may be feeling better. Patient states that the Vistaril was helpful for her anxiety. Patient reported that her mother is filing for guardianship of her son. Patient again asked questions about going to pen[facility]iary from the hospital. Mental Status:Appearance/Attitude: Patient is casually dressed, wearing makeup makes intermittent eye contact and was cooperative Behavior: Patient does not exhibit any psychomotor agitation or retardation Speech/Language: Patient's speech is spontaneous and normal volume and rhythm and she is coherent Thought Process: Patient is goal-directed there is no evidence of loose association or flight of ideas Thought Content: Patient denies any auditory or visual hallucinations no delusions or paranoid ideation were elicited. Patient states that she is feeling slightly better, states that she is less depressed. Patient states that she slept awfully last night and couldn't fall asleep. She states that her anxiety has been responding to the Vistaril. Patient states her appetite is good. Patient states that she is not feeling as hopeless or negative about the situation but continues to be concerned about going to penitentiary. Suicidal/Homicidal Ideation: Patient states that she continues to sort of have suicidal thoughts but no plan or intent to act and denies any current homicidal ideation Sensorium/Cognition: Patient is alert and oriented to person, place, and time and her recent and remote memory are grossly intact Mood/Affect: Patient's mood is less depressed her affect remains slightly blunted Insight/Judgment: Patient's insight and judgment are fair Assessment: Patient reports that she didn't sleep at all last night but documented that the patient slept for 6 hours. Patient states that she is feeling less depressed but then stated that she still sort of has suicidal thoughts but no plan or intent to act. Patient states that she has been attending groups and activities. She reports that she spoke with her mother who is filing for guardianship of her son. Patient reports no side effects from the medication and feels the Vistaril is been beneficial for her anxiety. Plan: Patient continues on Lamictal 25 mg daily, Abilify 15 mg daily, gabapentin 3 mg 3 times a day and Vistaril 25 mg 3 times a day as needed for anxiety. Patient and I discussed considering discharge early next week and she was agreeable with this. Patient was encouraged to attend groups and activities and continues to require hospitalization to further stabilize her mood.
[2018-05-27] MEDS: MELATONIN 3 MG TABLET PO SCH (21:43)
[2018-05-28] MEDS: NICOTINE 21MG/24HR PATCH TRANSDERM SCH (08:38)
[2018-05-28] MEDS: ARIPiprazole 15 MG TAB PO SCH (08:38)
[2018-05-28] MEDS: GABAPENTIN 300 MG CAP PO SCH ×3 (08:38→20:24)
[2018-05-28] MEDS: lamoTRIgine 25 MG TAB PO SCH (08:38)
[2018-05-28] MEDS: hydrOXYzine PAMOATE 25 MG CAP PO PRN ×2 (12:19→18:59)
--- NOTE | 2018-05-28 13:00 | P.PN ---
Progress Note - Text Progress Note Date: 05/28/18 Interval History: Patient is a 22-year-old female who was seen today she reports that she feels exhausted all the time and sleepy. She states that she is still somewhat depressed but not like she was on admission. She states that she is no longer having suicidal thoughts. She still concerned about the custody of her son and is hoping the guardianship will be awarded to her mother. Patient reports that she slept well last night and her appetite is good. She states that she's been attending groups and activities Mental Status: Appearance/Attitude: Patient is casually dressed, makes intermittent eye contact and is cooperative Behavior: Patient does not display any psychomotor agitation or retardation. Speech/Language: Patient's speech is spontaneous of normal volume and rhythm and she is coherent. Thought Process: Patient is goal-directed there is no evidence of loose association or flight of ideas Thought Content: Patient denies any auditory or visual hallucinations and no delusions or paranoid ideation or elicited. Patient states that she's feeling exhausted all the time, but not feeling as depressed as she was on admission. She reports that she was attending groups and activities yesterday but today hasn't attended all of them because she is feeling tired. She reports her appetite is good and she slept well last night. She reports no side effects from her medication. Suicidal/Homicidal Ideation: Patient denies any current suicidal or homicidal ideation Sensorium/Cognition: Patient is alert and oriented to person, place, and time and her recent and remote memory are grossly intact Mood/Affect: Patient states that she still feels depressed her affect is blunted Insight/Judgment: Patient's insight and judgment are fair Assessment: Patient states that she still concerned about her son and someone trying to remove her parental rights, she is hopeful that her mother will gain guardianship of her son. Patient states that she feels exhausted all the time, she states that she did sleep well last night. She reports that she has a good appetite and is feeling less depressed than she was on admission and no longer has any suicidal thoughts. Patient is trying to maintain a positive outlook regarding her son's custody. Patient reports no side effects from the medication. Plan: Patient will continue on Abilify 15 mg, Lamictal 25, melatonin 3 mg at bedtime gabapentin 300 mg 3 times a day and Vistaril 25 mg as needed for anxiety. Patient and I discussed the need to attend groups and activities as well as participate. Patient continues to require hospitalization to further stabilize her mood and consider discharge early next week.
[2018-05-28] MEDS: ACETAMINOPHEN TAB 325 MG TAB PO PRN (13:44)
[2018-05-28] MEDS: ZIPRASIDONE 20 MG VIAL IM PRN (19:29)
[2018-05-28] MEDS: MELATONIN 3 MG TABLET PO SCH (20:23)
[2018-05-29 07:12] VITALS: RESP 12
[2018-05-29] MEDS: NICOTINE 21MG/24HR PATCH TRANSDERM SCH (08:17)
[2018-05-29] MEDS: GABAPENTIN 300 MG CAP PO SCH ×3 (08:17→21:29)
[2018-05-29] MEDS: ARIPiprazole 15 MG TAB PO SCH (08:18)
[2018-05-29] MEDS: lamoTRIgine 25 MG TAB PO SCH (08:18)
[2018-05-29] MEDS: hydrOXYzine PAMOATE 25 MG CAP PO PRN ×2 (10:46→20:08)
--- NOTE | 2018-05-29 12:02 | P.PN ---
Progress Note - Text Progress Note Date: 05/29/18 Interval History: Patient is a 22-year-old female who was seen today she states that last night out of nowhere she had an episode of aggression and rage he states it's probably because she kept thinking about going to [facility] and her son. She states that the Geodon was effective. She states that after that she's been okay and has felt better today. She states that she still feeling overwhelmed about going to [facility] but is trying to deal with that on a daily to day basis. She states that the Vistaril is been helpful in controlling her anxiety. She reports no current suicidal thoughts and states she is feeling less depressed. She states that she's been attending groups and activities. Mental Status: Appearance/Attitude: Patient is casually dressed, makes good eye contact and is cooperative. Behavior: Patient does not exhibit any psychomotor agitation or retardation. Speech/Language: Speech is spontaneous of normal volume and rhythm and she is coherent. Thought Process: Patient is goal-directed there is no evidence of loose association or flight of ideas Thought Content: Patient denies any auditory or visual hallucinations and no delusions or paranoid ideation or elicited. Patient states she had an episode of rage last night and requested an injection and states that she felt better. She states that she just was thinking about going to [facility] and her son. She states that she's feeling better and slept well. She states that she is not feeling suicidal and not as depressed. She states that she still overwhelmed and try not to over think about her time in [facility]. Suicidal/Homicidal Ideation: Patient denies any current suicidal or homicidal ideation Sensorium/Cognition: Patient is alert and oriented to person, place, and time and her recent and remote memory are grossly intact Mood/Affect: Patient's mood is less depressed her affect is blunted Insight/Judgment: Patient's insight and judgment are fair Assessment: Patient states that last night she got aggressive and had an episode of rage states she doesn't know why there was no obvious precipitant. He states that the Geodon was effective. Patient states that she is not feeling as depressed but still is overwhelmed about going to [facility]. Patient states her current suicidal ideation. She reports no side effects from the medication. She states she's been attending groups and activities. Plan: Patient will continue on Abilify 15 mg daily, Vistaril 25 mg as needed for anxiety, melatonin for sleep and gabapentin 300 mg 3 times a day for anxiety. Patient and I again discussed a plan to discharge the patient on Thursday and she is agreeable with this plan, patient states that she is interested in doing rehab once she is released from [facility].
[2018-05-29] MEDS: MELATONIN 3 MG TABLET PO SCH (21:29)
[2018-05-29] MEDS: ACETAMINOPHEN TAB 325 MG TAB PO PRN (22:49)
[2018-05-30] MEDS: NICOTINE 21MG/24HR PATCH TRANSDERM SCH (08:26)
[2018-05-30] MEDS: ARIPiprazole 15 MG TAB PO SCH (08:26)
[2018-05-30] MEDS: lamoTRIgine 25 MG TAB PO SCH (08:26)
[2018-05-30] MEDS: GABAPENTIN 300 MG CAP PO SCH ×3 (08:26→20:09)
--- NOTE | 2018-05-30 13:59 | P.PN ---
Progress Note - Text Progress Note Date: 05/30/18 Interval History: Patient is a 22-year-old female who was seen today and she reports that she is attending groups and activities and not feeling suicidal but still is depressed and overwhelmed about going to pen[facility]iary. She states that she is worried about the hearing on Thursday for custody of her son. Patient states that she slept fairly well last night. Patient states that she is anxious about going to pen[facility]iary. Mental Status: Appearance/Attitude: Patient is casually dressed, makes good eye contact and was cooperative. Behavior: Patient does not exhibit any psychomotor agitation or retardation Speech/Language: Patient's speech is spontaneous of normal volume and rhythm and she is coherent Thought Process: Patient is goal-directed there is no evidence of loose association or flight of ideas Thought Content: Patient denies any auditory or visual hallucinations and no delusions or paranoid ideation or elicited. Patient states he continues to feel overwhelmed and depressed about going to penitentiary but is no longer feeling suicidal. She states that she is worried about the custody hearing on Thursday about her son. She states that she is sleeping and attending groups and activities. Her appetite is good Suicidal/Homicidal Ideation: Patient denies any current suicidal or homicidal ideation Sensorium/Cognition: Patient is alert and oriented to person, place, and time and her recent and remote memory are grossly intact Mood/Affect: Patient's mood is slightly depressed her affect is slightly blunted Insight/Judgment: Patient's insight and judgment are fair Assessment: Patient continues to voice her concern about going to penitentiary feeling overwhelmed and worried about it as well as concerned about the outcome of the hearing on Thursday regarding her son's custody. Patient states she's been attending groups and activities and slept for 5 hours last night. She reports no side effects from the medication. Plan: Patient continue on Abilify 15 mg daily, Lamictal 25 mg, gabapentin, melatonin and Vistaril to target her mood. Patient will be discharged tomorrow and is a [facility]iary hold.
[2018-05-30] MEDS: hydrOXYzine PAMOATE 25 MG CAP PO PRN ×2 (14:04→21:36)
[2018-05-30] MEDS: MELATONIN 3 MG TABLET PO SCH (20:09)
[2018-05-30] MEDS: ACETAMINOPHEN TAB 325 MG TAB PO PRN (20:09)
[2018-05-31 06:40] VITALS: BP 110/60; PULSE 75; TEMP 97.6
[2018-05-31] MEDS: NICOTINE 21MG/24HR PATCH TRANSDERM SCH (08:26)
[2018-05-31] MEDS: ARIPiprazole 15 MG TAB PO SCH (08:26)
[2018-05-31] MEDS: lamoTRIgine 25 MG TAB PO SCH (08:27)
[2018-05-31] MEDS: GABAPENTIN 300 MG CAP PO SCH (08:27)
--- NOTE | 2018-05-31 09:44 | P.DS ---
Providers Date of admission: 05/18/18 14:46 Expected date of discharge: 05/31/18 Attending physician: Rupinder Hess MD Consults: 05/18/18 14:50 Consult Physician Routine Consulting Provider: [facility] Physician Consult Reason/Comments: H&P for mental health admission Do you want consulting provider notified?: Yes Primary care physician: Stated None Hospital Course: Discharge Diagnosis: Bipolar type I disorder, current episode depressed; opioid use disorder, moderate; cannabis use disorder, mild; cocaine/amphetamine use disorder, mild Reason for Admission: Patient is a 22-year-old female was brought to the emergency room unresponsive after taking an overdose of heroin. Patient states that she had been clean for 9 months and 1 month ago child protective services removed her son from her because she took an overdose of heroin in front of him. She states that when that occurred she began using heroin again. She states that she had been clean for 9 months at that time. She states that she was not trying to kill herself but was overdosing on heroin. Patient states that she was at [facility] from April 24 until May 15 and when she was released found out that there was a warrant for child endangerment and started using again. Patient states that she is followed at [facility] but has not been seen there in 2 months and probably has not been taking her medications for the last 2 months. Patient states her medications were Lamictal 150 mg twice a day, Catapres 0.1 mg at bedtime, Seroquel 50 mg at bedtime, Neurontin 300 mg twice a day and Abilify 10 mg daily. Patient reports that she's been treated for bipolar disorder since the age of 12. She describes not sleeping a lot and being up for days at a time running the streets, using drugs as well as impulsive reckless behavior with an increased interest in sex and pressured speech. She states that she alternates with periods of depression where she's not talking withdrawn suicidal with no energy and poor sleep. Patient states at the age of 12 she took an overdose of [id number] medication and wasn't hospitalized but eventually was hospitalized in for a time at the age of 12. She states she was also hospitalized here in July 2017 after she took an overdose of heroin again was not a suicide attempt. She states at that time she had overdosed on heroin 3 times in several days and really didn't care about anything. States she followed with [facility] and meds were adjusted to the above medications. Patient states she's been using cocaine, IV heroin and also used methamphetamine. She states that she is currently suicidal, has no current plan but states that she wants to . Patient states that she feels hopeless and worthless. Patient does not endorse any psychotic symptoms. Patient states she is also on Neurontin for her anxiety which she can't really elaborate on what the symptoms were. Mental status on Admission: Appearance/Attitude: Patient is dressed in a hospital gown, appears very tired and almost falls asleep during the interview, she makes intermittent eye contact and was cooperative Behavior: Patient does not display any psychomotor agitation or retardation Speech/Language: Patient's speech is spontaneous of normal volume and rhythm and she is coherent Thought Process: Patient is goal-directed there is no evidence of loose association or flight of ideas Thought Content: Patient denies any auditory or visual hallucinations and no delusions or paranoid ideation were elicited area patient states that she is not sleeping feeling tired with little energy or interest to do things. Patient 's describes herself as being socially withdrawn and feeling hopeless and helpless. Suicidal/Homicidal Ideation: Patient reports suicidal ideation with no current plan but a wish to and no current homicidal ideation Sensorium/Cognition: Patient is alert and oriented to person, place, and time and her recent and remote memory are grossly intact Mood/Affect: Patient's mood is depressed and her affect is blunted Insight/Judgment: Patient's insight and judgment are fair Hospital Course: Patient was admitted on a voluntary basis and placed on routine observation in group and activity therapy were ordered. Patient had routine laboratory studies as well as a medical consultation. Patient on admission was able to endorse a history of both manic episodes as well as depressive episodes and we discussed the use and side effects of medication and started Abilify to target her mood symptoms and was titrated to a dose of 15 mg in the morning. Patient states that she had been on Lamictal and had done well on in the past and this was started and dose 25 mg and continued for 2 weeks while she was in the hospital. Patient was also continued on gabapentin 300 mg 3 times a day to target her anxiety. She was also placed on melatonin 3 mg at bedtime to assist with sleep and the patient continued to report anxiety symptoms and Vistaril 25 mg every 8 hours on an as-needed basis was added to target that. Patient in the hospital continued to report feeling depressed, suicidal and having no interest or energy to do things. Patient eventually as the dose of Abilify was increased began to attend groups or activities and participate appropriately. Patient also reported no suicidal ideation but then when she discovered that she was on a half-way hold became more suicidal and at one point wrapped a bra around her neck and tried to choke herself. Patient and I discussed her need for rehab after release from half-way and initially she was opposed to this but eventually discussed the fact that she would be agreeable to rehab for substance use. Patient was anxious about the custody of her son, her mother had applied for guardianship, her son had been removed by child protective services. Patient reported no side effects from the medicine and reported that she was no longer feeling suicidal and was no longer feeling as overwhelmed by the situation. Patient states she was still anxious about going to half-way. Patient also reported that she would consider rehab programs after release from half-way as she states that most of her friend's also used. Patient stated that she was sleeping well and her appetite was good she was no longer feeling hopeless or worthless and states that she was not having any side effects from the medication. She felt that the gabapentin as well as the Vistaril had been beneficial in controlling her anxiety. Patient was attending groups and activities and participating and felt they have been helpful. Allergies No Known Allergies Allergy (Verified 05/18/18 14:49) Laboratory Last Values WBC 8.4 k/uL (3.8-10.6) 05/19/18 08:28 RBC 5.01 m/uL (3.80-5.40) 05/19/18 08:28 Hgb 15.5 gm/dL (11.4-16.0) 05/19/18 08:28 Hct 46.5 % (34.0-46.0) H 05/19/18 08:28 MCV 92.9 fL (80.0-100.0) 05/19/18 08:28 MCH 30.9 pg (25.0-35.0) 05/19/18 08:28 MCHC 33.3 g/dL (31.0-37.0) 05/19/18 08:28 RDW 12.1 % (11.5-15.5) 05/19/18 08:28 Plt Count 246 k/uL (150-450) 05/19/18 08:28 Neutrophils % 51 % 05/19/18 08:28 Lymphocytes % 39 % 05/19/18 08:28 Monocytes % 6 % 05/19/18 08:28 Eosinophils % 2 % 05/19/18 08:28 Basophils % 0 % 05/19/18 08:28 Neutrophils # 4.3 k/uL (1.3-7.7) 05/19/18 08:28 Lymphocytes # 3.3 k/uL (1.0-4.8) 05/19/18 08:28 Monocytes # 0.5 k/uL (0-1.0) 05/19/18 08:28 Eosinophils # 0.2 k/uL (0-0.7) 05/19/18 08:28 Basophils # 0.0 k/uL (0-0.2) 05/19/18 08:28 Sodium 136 mmol/L (137-145) L 05/19/18 08:28 Potassium 4.4 mmol/L (3.5-5.1) 05/19/18 08:28 Chloride 102 mmol/L (98-107) 05/19/18 08:28 Carbon Dioxide 30 mmol/L (22-30) 05/19/18 08:28 Anion Gap 4 mmol/L 05/19/18 08:28 BUN 10 mg/dL (7-17) 05/19/18 08:28 Creatinine 0.59 mg/dL (0.52-1.04) 05/19/18 08:28 Est GFR (CKD-EPI)AfAm >90 (>60 ml/min/1.73 sqM) 05/19/18 08:28 Est GFR (CKD-EPI)NonAf >90 (>60 ml/min/1.73 sqM) 05/19/18 08:28 Glucose 80 mg/dL (74-99) 05/19/18 08:[address] Glu mg/dL 103 05/19/18 08:28 Hemoglobin A1c 5.2 % (4.0-6.0) 05/19/18 08:28 Calcium 9.1 mg/dL (8.4-10.2) 05/19/18 08:28 Total Bilirubin 1.0 mg/dL (0.2-1.3) 05/19/18 08:28 AST 74 U/L (14-36) H 05/19/18 08:28 ALT 75 U/L (9-52) H 05/19/18 08:28 Alkaline Phosphatase 65 U/L (38-126) 05/19/18 08:28 Total Protein 6.3 g/dL (6.3-8.2) 05/19/18 08: Albumin 3.5 g/dL (3.5-5.0) 05/19/18 08:28 Triglycerides 67 mg/dL (<150) 05/19/18 08: Cholesterol 129 mg/dL (<200) 05/19/18 08:28 LDL Cholesterol, Calc 55 mg/dL (0-99) 05/19/18 08:28 HDL Cholesterol 61 mg/dL (40-60) H 05/19/18 08:28 TSH 0.415 mIU/L (0.465-4.680) L 05/19/18 08:28 Urine Color Yellow 05/20/18 16:27 Urine Appearance Clear (Clear) 05/20/18 16:27 Urine pH 7.5 (5.0-8.0) 05/20/18 16:27 Ur Specific Delta 1.009 (1.001-1.035) 05/20/18 16:27 Urine Protein Negative (Negative) 05/20/18 16:27 Urine Glucose (UA) Negative (Negative) 05/20/18 16:27 Urine Ketones Trace (Negative) H 05/20/18 16:27 Urine Blood Negative (Negative) 05/20/18 16:27 Urine Nitrite Negative (Negative) 05/20/18 16:27 Urine Bilirubin Negative (Negative) 05/20/18 16:27 Urine Urobilinogen 2.0 mg/dL (<2.0) 05/20/18 16:27 Ur Leukocyte Esterase Negative (Negative) 05/20/18 16:27 Urine HCG, Qual Not Detected (Not Detectd) 05/20/18 16:27 Urine Opiates Screen Detected (NotDetected) H 05/18/18 07:11 Ur Oxycodone Screen Not Detected (NotDetected) 05/18/18 07:11 Urine Methadone Screen Not Detected (NotDetected) 05/18/18 07:11 Ur Propoxyphene Screen Not Detected (NotDetected) 05/18/18 07:11 Ur Barbiturates Screen Not Detected (NotDetected) 05/18/18 07:11 U Tricyclic Antidepress Not Detected (NotDetected) 05/18/18 07:11 Ur Phencyclidine Scrn Not Detected (NotDetected) 05/18/18 07:11 Ur Amphetamines Screen Not Detected (NotDetected) 05/18/18 07:11 U Methamphetamines Scrn Not Detected (NotDetected) 05/18/18 07:11 U Benzodiazepines Scrn Not Detected (NotDetected) 05/18/18 07:11 Urine Cocaine Screen Detected (NotDetected) H 05/18/18 07:11 U Marijuana (THC) Screen Not Detected (NotDetected) 05/18/18 07:11 Discharge Mental Status: Appearance/Attitude: Patient is casually dressed, makes good eye contact and was cooperative. Behavior: Patient did not display any psychomotor agitation or retardation. Speech/Language: Speech was spontaneous of normal volume and rhythm and she was coherent. Thought Process: Patient was goal-directed there was no evidence of loose association or flight of ideas Thought Content: Patient denied any auditory or visual hallucinations and no paranoid or delusional ideation was elicited. Patient reported she was no longer feeling overwhelmed or hopeless and states that she had more energy and motivation. Patient was attending groups and activities and was more socially interactive on the unit. She reported that her sleep had improved as at her appetite. Suicidal/Homicidal Ideation: Patient denied any current suicidal or homicidal ideation Sensorium/Cognition: Patient was alert and oriented to person, place, and time and her recent and remote history were grossly intact Mood/Affect: Patient's mood was stable and her affect was appropriate Insight/Judgment: Patient's insight and judgment are fair Risk Assessment: Patient's risk for readmission/suicide attempts is moderate should the patient not be compliant with medication and follow-up care, return to the use of drugs and/or alcohol Discharge Plan: Patient will be discharged to half-way as she is a half-way hold, she will continue on Abilify 15 mg in the morning, her Lamictal will be increased to 50 mg in the morning for 2 weeks and can be increased further by [facility], gabapentin 300 mg 3 times a day, Vistaril 25 mg every 8 hours as needed, melatonin 3 mg at bedtime and nicotine patches at a lower dose of 14 mg. Patient will be given prescriptions for these medications. Patient was encouraged to avoid all alcohol and drugs, consider inpatient or outpatient rehab programs once she is released from half-way. Patient was also encouraged to be compliant with her medications and follow-up appointments. Patient will be followed in half-way by [facility]. Patient Condition at Discharge: Stable Plan - Discharge Summary Discharge Rx Participant: No New Discharge Prescriptions: New ARIPiprazole [Abilify] 15 mg PO DAILY #14 tab Gabapentin [Neurontin] 300 mg PO TID #42 cap hydrOXYzine PAMOATE [Vistaril] 25 mg PO Q8HR PRN #28 cap PRN Reason: Anxiety lamoTRIgine [LaMICtal] 50 mg PO DAILY #28 tab Melatonin 3 mg PO HS #28 tablet Nicotine 14Mg/24Hr Patch [Habitrol] 1 patch TRANSDERM DAILY #14 patch Discontinued lamoTRIgine [LaMICtal] 150 mg PO BID cloNIDine HCL [Catapres] 0.1 mg PO HS QUEtiapine [SEROquel] 50 mg PO HS Gabapentin [Neurontin] 300 mg PO BID ARIPiprazole [Abilify] 10 mg PO DAILY Discharge Medication List ARIPiprazole [Abilify] 15 mg PO DAILY #14 tab 05/31/18 [Rx] Gabapentin [Neurontin] 300 mg PO TID #42 cap 05/31/18 [Rx] Melatonin 3 mg PO HS #28 tablet 05/31/18 [Rx] Nicotine 14Mg/24Hr Patch [Habitrol] 1 patch TRANSDERM DAILY #14 patch 05/31/18 [ Rx] hydrOXYzine PAMOATE [Vistaril] 25 mg PO Q8HR PRN #28 cap 05/31/18 [Rx] lamoTRIgine [LaMICtal] 50 mg PO DAILY #28 tab 05/31/18 [Rx] Follow up Appointment(s)/Referral(s): [facility] [NON-STAFF] - 1 Week intake, intake [Other] - 1 Week Patient Instructions/Handouts: How to Stop Smoking (GEN), Bipolar Disorder (GEN ), Depression (DC), Suicide Prevention for Adults (DC) Activity/Diet/Wound Care/Special Instructions: Keep your follow up appointments as scheduled. Continue your medications as prescribed. Diet and activity as tolerated. No access to guns or weapons. If you have any problems call the Crisis line at . Discharge Disposition: DC/TRANSFER COURT/LAW
[2018-05-31 11:58] VITALS: BMI 24.8
[2018-05-31] MEDS: hydrOXYzine PAMOATE 25 MG CAP PO PRN (12:24)
== END 2018-05-31 16:16 | DRG 885 ==
LOC: EC 03:53 → 3MHU 14:46
PROVIDERS: ADMIT Psychiatry & Neurology Psychiatry; ATTEND Psychiatry & Neurology Psychiatry
DX: F31.9 Bipolar disorder, unspecified (principal); R45.851 Suicidal ideations; T40.1X1A Poisoning by heroin, accidental (unintentional), initial encounter; F11.10 Opioid abuse, uncomplicated; F12.10 Cannabis abuse, uncomplicated; F14.90 Cocaine use, unspecified, uncomplicated; F15.10 Other stimulant abuse, uncomplicated; F17.200 Nicotine dependence, unspecified, uncomplicated; F41.0 Panic disorder [episodic paroxysmal anxiety]; Z79.899 Other long term (current) drug therapy; Z81.8 Family history of other mental and behavioral disorders; Z91.5 Personal history of self-harm; Z65.3 Problems related to other legal circumstances; B18.2 Chronic viral hepatitis C
CPT/HCPCS: 80053; 80061; 80306; 81003; 81025; 82075; 83036; 84443; 85025; 99285

== ENCOUNTER 2019-01-10 10:53 | Emergency (ER) | payer OTHER ==
[2019-01-10 11:17] VITALS: BP 111/81; PULSE 89; RESP 18; TEMP 98.6
[2019-01-10] MEDS ORDERED: Acetaminophen-Codeine 300-30mg TAB PO STA (11:51)
[2019-01-10] MEDS ORDERED: PENICILLIN V POTASSIUM 250 MG TAB PO STA (11:51)
[2019-01-10] MEDS ORDERED: ACET/COD 300 MG/30 MG STARTER PACK 6 TAB BTL PO STA (11:51)
[2019-01-10] MEDS ORDERED: IBUPROFEN 800 MG TAB PO STA (11:51)
[2019-01-10] MEDS ORDERED: PENICILLIN VK 500MG STARTER 4 TAB BTL PO STA (11:51)
[2019-01-10] MEDS ORDERED: DEXAMETHASONE SOD PHOSPHATE 10 MG/ML 1 ML VIAL IM STA (11:53)
--- NOTE | 2019-01-10 11:55 | ED ---
ENT HPI - General Chief complaint: Dental/Oral Stated complaint: dental abscess Time Seen by Provider: 01/10/19 11:14 Source: family, RN notes reviewed, old records reviewed Mode of arrival: ambulatory Limitations: no limitations - History of Present Illness Initial comments: This is a 23-year-old female the ER for evaluation. Patient with positive den royal pain right molar pain. Swelling is occurred over worsened last 2 days. No fevers. Patient does have appointment with dentist this week. Does have history of dental caries and dental abscess MD complaint: tooth pain -: days(s) Location: tooth # (Left lower) Severity: moderate Severity scale (1-10): 5 Quality: aching Consistency: constant Improves with: none Worsens with: none Context- Dental: history of dental caries Associated Symptoms: gum swelling, toothache - Related Data Home Medications Medication Instructions Recorded Confirmed Buprenorphine HCl/Naloxone HCl 1 film SL DAILY 01/10/19 01/10/19 [Suboxone 8 mg-2 mg Sl Film] lamoTRIgine [LaMICtal] 150 mg PO DAILY 01/10/19 01/10/19 Previous Rx's Medication Instructions Recorded ARIPiprazole [Abilify] 15 mg PO DAILY #14 tab 05/31/18 Naproxen [Naprosyn] 500 mg PO Q12HR #30 tab 01/10/19 Penicillin V Potassium [Pen Vee K] 500 mg PO QID #40 tablet 01/10/19 Allergies Allergy/AdvReac Type Severity Reaction Status Date / Time No Known Allergies Allergy Verified 01/10/19 11:31 Review of Systems ROS Statement: Those systems with pertinent positive or pertinent negative responses have been documented in the HPI. ROS Other: All systems not noted in ROS Statement are negative. Past Medical History Past Medical History: No Reported History Additional Past Medical History / Comment(s): hepatitis C History of Any Multi-Drug Resistant Organisms: None Reported Past Surgical History: Orthopedic Surgery, Tonsillectomy Additional Past Surgical History / Comment(s): rt knee-"bone shaved" Past Anesthesia/Blood Transfusion Reactions: No Reported Reaction Additional Past Anesthesia/Blood Transfusion Reaction / Comment(s): never had a blood transfusion Past Psychological History: Bipolar, Depression Smoking Status: Current every day smoker Past Alcohol Use History: Occasional Past Drug Use History: None Reported, Cocaine, Heroin, Methamphetamine - Past Family History Mother Additional Family Medical History / Comment(s): back problems- has pain pump Father Family Medical History: No Reported History General Exam - General Exam Comments Initial Comments: does have significant dental caries, right lower molar likely abscess and pain tenderness Limitations: no limitations General appearance: alert, in no apparent distress Head exam: Present: atraumatic, normocephalic, normal inspection Eye exam: Present: normal appearance, PERRL, EOMI. Absent: scleral icterus, conjunctival injection, periorbital swelling ENT exam: Present: normal exam, mucous membranes moist Neck exam: Present: normal inspection. Absent: tenderness, meningismus, lymphadenopathy Respiratory exam: Present: normal lung sounds bilaterally. Absent: respiratory distress, wheezes, rales, rhonchi, stridor Cardiovascular Exam: Present: regular rate, normal rhythm, normal heart sounds. Absent: systolic murmur, diastolic murmur, rubs, gallop, clicks GI/Abdominal exam: Present: soft, normal bowel sounds. Absent: distended, tenderness, guarding, rebound, rigid Extremities exam: Present: normal inspection, full ROM, normal capillary refill. Absent: tenderness, pedal edema, joint swelling, calf tenderness Back exam: Present: normal inspection Neurological exam: Present: alert, oriented X3, CN II-XII intact Psychiatric exam: Present: normal affect, normal mood Skin exam: Present: warm, dry, intact, normal color. Absent: rash Course Vital Signs 01/10/19 11:15 Temperature 98.6 F Pulse Rate 89 Respiratory 18 Rate Blood Pressure 111/81 O2 Sat by Pulse 96 Oximetry Medical Decision Making - Medical Decision Making 23 female the ER with dental abscess. Patient be prescribed antibiotics and pain control. Patient can be discharged home to follow-up with dentist as directed this week Disposition Clinical Impression: Dental abscess, Dental caries Disposition: HOME SELF-CARE Condition: Good Instructions (If sedation given, give patient instructions): Dental Abscess (ED), Dental Caries (ED), Toothache (ED) Prescriptions: Naproxen [Naprosyn] 500 mg PO Q12HR #30 tab Penicillin V Potassium [Pen Vee K] 500 mg PO QID #40 tablet Is patient prescribed a controlled substance at d/c from ED?: No Referrals: Pk Amador MD [Primary Care Provider] - 1-2 days
== END 2019-01-10 12:28 | disposition home or self-care (01) ==
LOC: EC 10:53
DX: K04.7 Periapical abscess without sinus (principal); K02.9 Dental caries, unspecified; F17.200 Nicotine dependence, unspecified, uncomplicated; Z79.899 Other long term (current) drug therapy; Z86.19 Personal history of other infectious and parasitic diseases
CPT/HCPCS: 99283; 96372; J1100

== ENCOUNTER → 2019-11-16 | Outpatient (CLI) | payer OTHER ==
--- NOTE | 2019-11-16 09:25 | US ---
EXAMINATION TYPE: US abdomen limited DATE OF EXAM: 11/16/2019 COMPARISON: NONE CLINICAL HISTORY: B18.2 Chronic viral hepatitis c. Hep C EXAM MEASUREMENTS: Liver Length: 12.2 cm Gallbladder Wall: 0.1 cm CBD: 0.6 cm Right Kidney: 10.0 x 4.1 x 5.0 cm Pancreas: Heterogenous pancreatic neck, tail limited by overlying midline bowel gas Liver: wnl Gallbladder: wnl Evidence for sonographic Arambula's sign: no CBD: Upper limits of normal measuring 0.6cm Right Kidney: wnl IMPRESSION: 1. The liver is homogeneous despite the patient's known hepatocellular disease. No focal masses are s een on today's exam. 2. Slightly heterogenous pancreatic neck, although this could relate to technique and the etiologies are possible. Correlate with amylase and lipase. If there is further clinical concern MRCP with and w ithout contrast would be recommended.
== END | disposition home or self-care (01) ==
LOC: RADUSWWP 08:14
PROVIDERS: ATTEND Internal Medicine Gastroenterology
DX: B18.2 Chronic viral hepatitis C (principal)
CPT/HCPCS: 76705